=== PATIENT | female | born 1970 | race Caucasian/White ===

== ENCOUNTER 2018-06-02 09:24 | Outpatient (REF) | payer BC, SELFPAY ==
[2018-06-02 13:27] LABS: TSH (W/Ref FT4) 0.95 uIU/mL (0.358-3.74)
== END 2018-06-02 09:25 ==
LOC: NCHCN 09:24
PROVIDERS: PCP Nurse Practitioner Family; Visit Provider Nurse Practitioner Family
DX: E03.9 Hypothyroidism, unspecified (principal)
CPT/HCPCS: 84443

== ENCOUNTER 2018-07-30 12:52 | Outpatient (REF) | payer BC, SELFPAY ==
[2018-07-30 13:45] LABS: TSH 2.32 uIU/mL (0.358-3.74)
== END 2018-07-30 13:12 ==
LOC: NCHCN 12:52
PROVIDERS: PCP Nurse Practitioner Family; Visit Provider Nurse Practitioner Family
DX: E03.9 Hypothyroidism, unspecified (principal)
CPT/HCPCS: 84443

== ENCOUNTER 2019-07-07 13:42 | Outpatient (REF) | payer BC, SELFPAY ==
[2019-07-07 21:20] LABS: TSH 8.45 uIU/mL (0.36-3.74)
== END 2019-07-07 14:02 ==
LOC: NCHCN 13:42
PROVIDERS: PCP Nurse Practitioner Family; Visit Provider Nurse Practitioner Family
DX: E03.9 Hypothyroidism, unspecified (principal)
CPT/HCPCS: 84443

== ENCOUNTER 2020-04-03 16:35 | Outpatient (REF) | payer BC, SELFPAY ==
[2020-04-03 20:15] LABS: Anion Gap 7.5 mmol/L (3-11); BUN 16 mg/dL (7-18); CO2 31.5 mmol/L (21.0-32.0); CREATININE 0.89 mg/dL (0.55-1.02); Calcium 9.4 mg/dL (8.5-10.1); Chloride 101 mmol/L (98-107); Glucose 150 mg/dL (74-106); Potassium 4.8 mmol/L (3.5-5.1); Sodium 140 mmol/L (136-145); TSH (W/Ref FT4) 6.79 uIU/mL (0.36-3.74)
[2020-04-03 20:31] LABS: FREE T4 1.25 ng/dL (0.76-1.46)
== END 2020-04-03 16:55 ==
LOC: NCHCN 16:35
PROVIDERS: PCP Nurse Practitioner Family; Visit Provider Nurse Practitioner Family
DX: Z00.00 Encounter for general adult medical examination without abnormal findings (principal); E03.9 Hypothyroidism, unspecified; N76.5 Ulceration of vagina; Z68.44 Body mass index [BMI] 60.0-69.9, adult; R30.0 Dysuria
CPT/HCPCS: 80048; 87077; 84439; 84443; 87086; 87186; 87480; 87510; 87660

== ENCOUNTER 2020-04-11 13:47 | Outpatient (REF) | payer BC, SELFPAY ==
[2020-04-13 12:38] LABS: HSV 1 DNA Result Negative (Negative); HSV 2 DNA Result Negative (Negative)
== END 2020-04-11 14:07 ==
LOC: NCHCN 13:47
PROVIDERS: PCP Nurse Practitioner Family; Visit Provider Nurse Practitioner Family
DX: N76.5 Ulceration of vagina (principal)
CPT/HCPCS: 87529

== ENCOUNTER 2020-04-12 21:42 | Outpatient (REF) | payer BC, SELFPAY | END 2020-04-12 22:02 | LOC: LBN 21:42 | PROVIDERS: PCP Nurse Practitioner Family; Visit Provider Nurse Practitioner Family | DX: R30.0 Dysuria (principal) | CPT/HCPCS: 87086 ==

== ENCOUNTER 2020-07-10 16:28 | Outpatient (REF) | payer BC, SELFPAY ==
[2020-07-10 19:26] LABS: Abs Immature Grans 0.07 10^3/uL (0.0-0.06); Absolute Basophil Count 0.04 10^3/uL (0.0-0.2); Absolute Eosinophil Count 0.45 10^3/uL (0.0-0.7); Absolute Lymphocyte Count 1.26 10^3/uL (1.2-3.4); Absolute Monocyte Count 0.53 10^3/uL (0.1-0.8); Absolute Neutrophil Count 10.02 10^3/uL (1.2-6.7); Basophils % 0.3; Eosinophils % 3.6; HCT 38.1 % (36.0-46.0); HGB 11.9 g/dL (11.2-15.7); Immature Grans % 0.6; Lymphocytes % 10.2; MCH 27.3 pg (27.0-33.0); MCHC 31.2 % (32.0-36.0); MCV 87.4 fL (80-95); MPV 10.4 fL (8.0-11.0); Monocytes % 4.3; Nucleated RBC 0 %; Platelet Count 409 10^3/uL (130-400); RBC 4.36 10^6/uL (3.93-5.22); RDW-SD 44.7 fL; WBC 12.37 10^3/uL (4.4-10.8)
[2020-07-10 19:37] LABS: Anion Gap 7.8 mmol/L (3-11); BUN 10 mg/dL (7-18); CO2 32.2 mmol/L (21.0-32.0); CREATININE 0.76 mg/dL (0.55-1.02); Calcium 9.4 mg/dL (8.5-10.1); Chloride 102 mmol/L (98-107); Glucose 159 mg/dL (74-106); Potassium 4.3 mmol/L (3.5-5.1); Sodium 142 mmol/L (136-145); TSH 22.49 uIU/mL (0.36-3.74)
== END 2020-07-10 16:48 ==
LOC: NCHCN 16:28
PROVIDERS: PCP Nurse Practitioner Family; Visit Provider Nurse Practitioner Family
DX: E03.9 Hypothyroidism, unspecified (principal); N76.5 Ulceration of vagina
CPT/HCPCS: 80048; 84443; 85025

== ENCOUNTER 2020-07-31 13:05 | Outpatient (REF) | payer BC, SELFPAY ==
[2020-07-31 19:12] LABS: Anion Gap 6.5 mmol/L (3-11); BUN 14 mg/dL (7-18); CO2 32.5 mmol/L (21.0-32.0); Chloride 101 mmol/L (98-107); Glucose 147 mg/dL (74-106); Potassium 5.5 mmol/L (3.5-5.1); Sodium 140 mmol/L (136-145)
[2020-07-31 19:13] LABS: Absolute Basophil Count 0.04 10^3/uL (0.0-0.2); Absolute Eosinophil Count 0.76 10^3/uL (0.0-0.7); Absolute Monocyte Count 0.95 10^3/uL (0.1-0.8); Basophils % 0.3; Eosinophils % 5.8; HCT 40.6 % (36.0-46.0); HGB 12.5 g/dL (11.2-15.7); Immature Grans % 0.8; Lymphocytes % 8.4; MCH 26.9 pg (27.0-33.0); MCHC 30.8 % (32.0-36.0); MCV 87.5 fL (80-95); MPV 10.3 fL (8.0-11.0); Monocytes % 7.2; Neutrophils % 77.5; Nucleated RBC 0 %; Platelet Count 382 10^3/uL (130-400); RBC 4.64 10^6/uL (3.93-5.22); RDW 13.9 % (11.7-14.6); WBC 13.17 10^3/uL (4.4-10.8)
[2020-07-31 19:19] LABS: Absolute Lymphocyte Count 1.11 10^3/uL (1.2-3.4); Absolute Neutrophil Count 10.21 10^3/uL (1.2-6.7)
== END 2020-07-31 13:25 ==
LOC: NCHCN 13:05
PROVIDERS: PCP Nurse Practitioner Family; Visit Provider Nurse Practitioner Family
DX: C51.9 Malignant neoplasm of vulva, unspecified (principal); R21 Rash and other nonspecific skin eruption; R60.0 Localized edema; L03.90 Cellulitis, unspecified
CPT/HCPCS: 80048; 85025

== ENCOUNTER 2020-08-08 09:24 | Inpatient (IN) | payer BC, SELFPAY ==
[2020-08-08] VITALS (75 sets, daily range): BP systolic 102–149; BP diastolic 58–95; PULSE 83–122; RESP 17–32; TEMP 36.3–37.4; O2SAT 85–100
--- NOTE | 2020-08-08 09:15 | RT.EKG_ITS ---
APPROVED REPORT Exam: Resting ECG Patient Location: E HR:96 bpm ECG Measurements Heart Rate 96 AXIS LA 140 P 50 QRSd 83 QRS 48 QT 312 T 37 QTc 394 Conclusion Sinus rhythm...normal P axis, V-rate 60- 99 Atrial premature complex...SV complex w/ short R-R interval
--- NOTE | 2020-08-08 09:45 | DI.CT_ITS ---
EXAM: CT CHEST PE CTA CLINICAL HISTORY: CHEST PAIN pleutitic, recent vulvar ca. TECHNIQUE: Imaging Protocol: Axial CT angiography was performed with multi-slice acquisition and mu lti-planar and/or 3D reconstructions. CONTRAST MATERIAL: Intravenous: Omnipaque 350 Contrast volume:100 cc COMPARISON: CT CT THORACIC SPINE RECONS from 08/08/2020 FINDINGS: Exam is limited by patient body habitus and respiratory motion. Pulmonary Arteries: No evidence of filling defect to suggest pulmonary emboli. Tracheobronchial tree: Patent where visualized. Mediastinum and Lizzie: Enlarged bilateral hilar and mediastinal lymph nodes. Small axillary lymph nod es are also seen. Pulmonary parenchyma: Extremely limited due to respiratory motion. Multiple bilateral pulmonary nodu les are present. No gross focal area of consolidation. Posterior atelectasis. Pleura: No effusion or pneumothorax. Heart: The heart is mildly dilated. Mild coronary artery calcifications are seen. Aorta: Thoracic aorta non-dilated. Upper abdomen: Unremarkable. Bones: See separate CT thoracic spine report. IMPRESSION: Extremely limited exam due to respiratory motion. No gross evidence of pulmonary embolism. Bilater al pulmonary metastases and adenopathy is noted. RADIATION DOSE DELIVERED: 898.44mGy.cm Total DLP DATA REPOSITORY: All CT scans at this facility are submitted to the National Radiology Data Registry (NRDR) Dose Index Registry (DIR) with the [employer] (ACR). RADIATION OPTIMIZATION: All CT scans at this facility use at least one of these dose optimization te chniques: automated exposure control; mA and/or kV adjustment per patient size (includes targeted exa ms where dose is matched to clinical indication); or iterative reconstruction.
--- NOTE | 2020-08-08 09:57 | ED.GENADUL_ITS ---
Discharge Plan Disposition Condition: Stable Discharge Details Chief Complaint: GenMedical Admit Date/Time: 08/08/20 17:18 Admit Provider: Ramo Stephens Attending Provider: Ramo Stephens Primary Care Provider: Areli Peck ED Provider: Bonilla Flores Discharge Instructions Activity:: Activity as Tolerated Diet:: As Tolerated Discharge Orders Discharge Orders: Discharge Order (Routine); Ordered 08/09/20 Ordered By: Nisha Spring Discharge Data Discharge Date/Time-TO BE ENTERED AT DEPARTURE: 08/08/20 18:16 Medical Decision Making 957??50-year-old female with recently diagnosed vulvar cancer with hot spots on recent PET scan, here with fairly sudden onset mid back pain radiating to her central chest that started last night at 9 PM and has persisted. Pain is pleuritic in nature. Patient does note recent bilateral leg swelling. Patient also states she has some associated pain in her left elbow. She states that she has had pain in her neck over the past couple weeks. Patient also notes recent cellulitis being treated with doxycycline, just completed 1 week course. Patient is saturating in the low to mid 90s on room air. Blood pressure stable. Concern for acute pulmonary embolism. Plan to obtain CT of the chest. Consider ACS. Screening ECG was reviewed and interpreted by me: Sinus rhythm 96 bpm, normal axis, no STEMI, nondiagnostic. Will check troponin. We will give Ativan 1 mg IV for neck spasm and anxiety. --Initial labs reviewed and hypercalcemia noted with 12.9. Will initiate volume expansion with normal saline at 250 mL/h. Patient complaining of persistent pain. Will give fentanyl 50 mcg IV. -- CT interpreted as negative for PE. Significant tumor mets in lungs and spine. I reviewed results with Patient admitted for pain control. Care transitioned to hospitalist service. HPI General Mode of arrival: ambulatory . Date/Time Provider Initiated Documentation: 08/08/20 09:38 . Limitations to Documentation: no limitations . Information obtained by: patient . HPI Narrative: 50-year-old female with recently diagnosed vulvar cancer with hot spots on recent PET scan, here with fairly sudden onset mid back pain radiating to her central chest that started last night at 9 PM and has persisted. Pain is pleuritic in nature. Pain is severe. Patient does note recent bilateral leg swelling. Patient also states she has some associated pain in her left elbow. Related Data Home Medications Medication Instructions Recorded Confirmed levothyroxine 200 mcg tablet 200 mcg PO DAILY tab 04/12/20 08/21/20 lidocaine HCl 2 % mucosal jelly 1 applic TP QD-TID PRN #50 ml 06/05/20 08/21/20 cranberry 400 mg PO DAILY 08/08/20 08/21/20 cyclobenzaprine 10 mg PO TID PRN 08/08/20 08/21/20 ibuprofen 600 mg PO Q6H PRN 08/08/20 08/21/20 fentanyl 12 mcg TRANSDERMAL Q72H #1 ea 08/09/20 08/21/20 acetaminophen 1,000 mg PO TID 08/21/20 08/21/20 enoxaparin See Rx Instructions .ROUTE .COMPLEX 08/21/20 08/21/20 gabapentin 300 mg PO TID 08/21/20 08/21/20 hydromorphone [Dilaudid] 2 mg PO Q4-5H PRN 08/21/20 08/21/20 levothyroxine 50 mcg PO DAILY 08/21/20 08/21/20 lorazepam 0.5 mg PO QID PRN 08/21/20 08/21/20 multivitamin 1 tab PO DAILY 08/21/20 08/21/20 polyethylene glycol 3350 [Miralax] 17 g PO DAILY 08/21/20 08/21/20 senna-docusate sodium 1 tab PO BID PRN 08/21/20 08/21/20 Previous Rx's Medication Instructions Recorded lidocaine HCl 2 % mucosal jelly 1 applic TP QD-TID PRN #50 ml 06/05/20 fentanyl 12 mcg TRANSDERMAL Q72H #1 ea 08/09/20 Allergies Allergy/AdvReac Type Severity Reaction Status Date / Time erythromycin base Allergy Mild Unverified 08/21/20 22:02 General Stated Complaint: GenMedical MARY: 3 Review of Systems All systems reviewed & are unremarkable except as noted in HPI and below Cardiovascular Cardiovascular: Reports chest pain and Denies dyspnea Respiratory Respiratory: Denies dyspnea [facility] Medical History Genital labial ulcer Morbid obesity UTI (urinary tract infection) Klebsiella -treated with Bactrim 03/2020 Surgical History History of endometrial ablation Previous section Family History Other Heart disease Hyperlipidemia Hypertension Thyroid condition Social History Smoking/Tobacco Use Status: Never Smoking risk assessment performed?: Yes Alcohol Intake: current Alcohol Intake frequency: holidays/special occasions only Drug use: Never Current gender identity: female Do you feel safe at home: Yes Do you feel safe in your relationship?: Yes History History 1 Para 2 Hx # Term Pregnancies Multiple births Hx # Pregnancies 1 Ectopic pregnancies AB induced Hx Number of Living Children 2 AB spontaneous Exam Const General: cooperative and uncomfortable Orientation: alert and awake Limitations: altered mental status HENMT Head: normocephalic and atraumatic Mouth: moist mucous membranes Eyes Conjunctivae: normal conjunctivae Sclera: normal sclerae Neck Neck: trachea midline and supple Resp Auscultation: clear to auscultation bilaterally, no rales, no rhonchi and no wheezes Cardio Jugular venous pressure: no JVD Rate: tachycardic GI Palpation: soft, not firm, no guarding, no masses, not rigid and nontender Back/Spine/Pelvis Thoracic/Lumbar Spine: paraspinal tenderness and No thoracic spinal tenderness Sacrum: no erythema Skin General skin exam: no rashes or lesions noted Neuro General: patient alert, patient awake, patient oriented x3 and tone normal Extrem General: no calf tenderness bilaterally and edema Psych Appearance: grossly normal Mental Status: mental status grossly normal Speech and Movement: speech and movement normal Course Vital Signs Vital signs: Vital Signs Temperature 36.4 C L 08/08/20 09:33 Pulse 94 H 08/08/20 09:33 Respiratory Rate 20 08/08/20 09:33 Blood Pressure 145/83 H 08/08/20 09:33 Pulse Oximetry 95 08/08/20 09:33 Temperature 36.4 C L 08/08/20 09:33 Temperature Source Oral 08/08/20 09:33 Pulse 94 H 08/08/20 09:33 Respiratory Rate 20 08/08/20 09:33 Respiratory Effort 08/08/20 09:36 Blood Pressure 145/83 H 08/08/20 09:33 Blood Pressure Position Supine 08/08/20 09:33 Pulse Oximetry 95 08/08/20 09:33 Oxygen Delivery Method Room Air 08/08/20 09:33 Oxygen Flow Rate 0 08/08/20 09:33 Pain Level 10 08/08/20 09:33
[2020-08-08] MEDS: LORazepam 2 MG/ML VIAL 1 MG IVP (10:01)
[2020-08-08] MEDS: Normal Saline Flush 10 ML SYR IVP ×2 (10:01→20:03)
[2020-08-08 10:16] LABS: Absolute Basophil Count 0.03 10^3/uL (0.0-0.2); Basophils % 0.2; Eosinophils % 7.2; HCT 38.7 % (36.0-46.0); HGB 12.4 g/dL (11.2-15.7); Immature Grans % 0.8; Lymphocytes % 7.2; MCV 84.1 fL (80-95); MPV 9.7 fL (8.0-11.0); Monocytes % 8.2; Neutrophils % 76.4; Nucleated RBC 0 %; Platelet Count 328 10^3/uL (130-400); RDW 13.3 % (11.7-14.6); WBC 12.98 10^3/uL (4.4-10.8)
[2020-08-08 10:18] LABS: Absolute Eosinophil Count 0.93 10^3/uL (0.0-0.7); Absolute Lymphocyte Count 0.93 10^3/uL (1.2-3.4); Absolute Monocyte Count 1.06 10^3/uL (0.1-0.8); Absolute Neutrophil Count 9.92 10^3/uL (1.2-6.7)
[2020-08-08] MEDS: fentaNYL 100 MCG/2 ML VIAL 50 MCG IVP (10:29)
[2020-08-08 10:32] LABS: Prothrombin Time 10.3 sec (9.3-11.0)
[2020-08-08 10:33] LABS: ALT 6 U/L (14-59); AST 15 U/L (15-37); Albumin 2.7 g/dL (3.4-5.0); Alkaline Phosphatase 124 U/L (46-116); Anion Gap 3.6 mmol/L (3-11); BUN 21 mg/dL (7-18); Bilirubin, Total 0.6 mg/dL (0.2-1.0); CO2 32.4 mmol/L (21.0-32.0); CREATININE 1.15 mg/dL (0.55-1.02); Chloride 98 mmol/L (98-107); Estimated GFR 49.75 (mL/min/1.73m2); Glucose 137 mg/dL (74-106); Sodium 134 mmol/L (136-145); Total Protein 8.2 g/dL (6.4-8.2)
[2020-08-08 10:37] LABS: Calcium 12.9 mg/dL (8.5-10.1); Troponin I < 0.05 ng/mL (<0.06)
[2020-08-08] MEDS: Normal Saline 250 ML IV (10:46)
--- NOTE | 2020-08-08 11:46 | DI.CT_ITS ---
EXAM: CT THORACIC SPINE RECONS CLINICAL HISTORY: pain, vulvar ca with mets. TECHNIQUE: Imaging Protocol: Axial computed tomography images with coronal and sagittal reformatted images were created and reviewed. Exam was reconstructed from the chest CT. CONTRAST MATERIAL: Intravenous: Omnipaque 350 Contrast volume:100 cc COMPARISON: CT CT CHEST PE CTA from 08/08/2020 FINDINGS: Exam is limited by patient body habitus and motion. Bones: No fractures or dislocations are seen. There are degenerative disc changes. There is a mild scoliosis. There are questionable areas of lucency in the T12 vertebral body. The findings could re present metastatic disease. Upper thoracic vertebral bodies are not well evaluated evaluated due to artifact.. Soft tissues: The paraspinal soft tissues are unremarkable. No large disk herniations are identified. IMPRESSION: Question of lytic lesions in the T12 vertebral body which could represent metastatic disease. No fra cture. RADIATION DOSE DELIVERED: Total DLP DATA REPOSITORY: All CT scans at this facility are submitted to the National Radiology Data Registry (NRDR) Dose Index Registry (DIR) with the [employer] (ACR). RADIATION OPTIMIZATION: All CT scans at this facility use at least one of these dose optimization te chniques: automated exposure control; mA and/or kV adjustment per patient size (includes targeted exa ms where dose is matched to clinical indication); or iterative reconstruction.
[2020-08-08] MEDS: HYDROmorphone 2 MG/ML VIAL 1 MG IVP ×2 (11:54→15:28)
[2020-08-08] MEDS: Omnipaque 350 MG/ML 100 ML BTL IV (13:29)
--- NOTE | 2020-08-08 15:50 | NUR.NOTE ---
pt assisted into coco chair for comfort Nursing Note:
--- NOTE | 2020-08-08 17:51 | HPE_ITS ---
Date of service: 08/08/20 Time of Service: 17:51 Assessment and Plan Assessment and plan (1) Back pain: Status: Acute Assessment and plan: There is little doubt the back pain represents metastatic lesion, presumably pathological fracture or malignant infiltration. No signs myelopathy. In addition the hypercalcemia is cancer related. Will continue empiric pain meds (NSAIDs with opioids) and will begin aggressive hydration/diuresis for the hypercalcemia. Planned transfer [facility] [place] when bed available. History of Present Illness History of Present Illness Chief Complaint: back pain Narrative: 50 female with recently diagnosed vulvar cancer and PET scan 3 weeks [employer] demonstrating diffuse adenopathy and mutiple bony mets. Here with one day on sudden onset interscapular pain with band like radiation to chest. In ER w/u of note for negative chest CTA and suboptimal thoracic CT (note again that PET showed mets throughout spine). Also Calcium 12.9 noted. ER spoke with oncology, feels the mets may not be vulvar in origin, but in any case will need biopsy and mokre definitive treatment. provisionally accepted pending bed availability. Here has received first Fentanyl 50 and then Dilaudid 2 mg cumulatively, pain controlled. Admitted for further management. Review of Systems All systems reviewed & are unremarkable except as noted in HPI and below [facility] Medical History (Updated 08/08/20 @ 18:01 by Ramo Stephens MD) Genital labial ulcer Morbid obesity UTI (urinary tract infection) Klebsiella -treated with Bactrim 03/2020 Surgical History History of endometrial ablation Previous section Family History Other Heart disease Hyperlipidemia Hypertension Thyroid condition Social History Smoking/Tobacco Use Status: Never Alcohol Intake: current Alcohol Intake frequency: holidays/special occasions only Drug use: Never Current gender identity: female Do you feel safe at home: Yes Do you feel safe in your relationship?: Yes History History 1 Para 2 Hx # Term Pregnancies Multiple births Hx # Pregnancies 1 Ectopic pregnancies AB induced Hx Number of Living Children 2 AB spontaneous Meds Home Medications and Allergies Home Medications Medication Instructions Recorded Confirmed Type levothyroxine 200 mcg tablet 225 mcg PO DAILY tab 04/12/20 08/08/20 History lidocaine 3 % topical cream 1 applic TP DAILY PRN #85 gm 04/27/20 08/08/20 Rx lidocaine HCl 2 % mucosal jelly 1 applic TP QD-TID PRN #50 ml 06/05/20 08/08/20 Rx acetaminophen 650 mg PO ONCE PRN 08/08/20 08/08/20 History ascorbic acid (vitamin C) 500 mg PO DAILY 08/08/20 08/08/20 History cholecalciferol (vitamin D3) 25 mcg PO DAILY 08/08/20 08/08/20 History clonazepam 08/08/20 08/08/20 History cranberry 400 mg PO DAILY 08/08/20 08/08/20 History cyclobenzaprine mg 08/08/20 08/08/20 History ibuprofen 400 mg PO Q6H PRN 08/08/20 08/08/20 History Allergies Allergy/AdvReac Type Severity Reaction Status Date / Time erythromycin base Allergy Mild Unverified 08/08/20 09:37 Exam Narrative Exam Narrative: 108/72, 93, 36.4, 20, 100% RA. HEENT unremarkable; neck supple; lungs clear; heart distant RRR; abdomen soft and NT; extremities trace pedal edema, pulse 2+/=; neuro Ox3, moves all 4s, no sensory level Results Labs Result diagrams: 08/08/20 09:55 08/08/20 09:55 Labs: Laboratory Results - last 24 hr 08/08/20 08/08/20 08/08/20 09:53 09:55 09:55 WBC RBC Hgb Hct MCV MCH MCHC RDW Plt Count MPV Immature Gran % Neutrophils % Lymphocytes % Monocytes % Eosinophils % Basophils % Nucleated RBC % Absolute Neutrophils Absolute Lymphocytes Absolute Monocytes Absolute Eosinophils Absolute Basophils PT 10.3 INR 1.0 APTT 27.0 Sodium 134 L Potassium 5.0 Chloride 98 Carbon Dioxide 32.4 H Anion Gap 3.6 BUN 21 H Creatinine 1.15 H Estimated GFR/1.73 m2 49.75 Glucose 137 H Calcium 12.9 H* Magnesium Cancelled 2.0 Total Bilirubin 0.6 AST 15 ALT 6 L Alkaline Phosphatase 124 H Troponin I Cancelled < 0.05 Total Protein 8.2 Albumin 2.7 L 08/08/20 09:55 WBC 12.98 H RBC 4.60 Hgb 12.4 Hct 38.7 MCV 84.1 MCH 27.0 MCHC 32.0 RDW 13.3 Plt Count 328 MPV 9.7 Immature Gran % 0.8 Neutrophils % 76.4 Lymphocytes % 7.2 Monocytes % 8.2 Eosinophils % 7.2 Basophils % 0.2 Nucleated RBC % 0 Absolute Neutrophils 9.92 H Absolute Lymphocytes 0.93 L Absolute Monocytes 1.06 H Absolute Eosinophils 0.93 H Absolute Basophils 0.03 PT INR APTT Sodium Potassium Chloride Carbon Dioxide Anion Gap BUN Creatinine Estimated GFR/1.73 m2 Glucose Calcium Magnesium Total Bilirubin AST ALT Alkaline Phosphatase Troponin I Total Protein Albumin Last Vital Signs Temp 36.4 C L 08/08/20 17:24 Pulse 93 H 08/08/20 17:24 Resp 20 08/08/20 17:24 BP 108/72 08/08/20 17:24 Pulse Ox 100 08/08/20 17:24 COVID-19 Screening Have you,or household,traveled outside [facility] in last 14 days?: No Had IN PERSON contact w/suspected or confirmed C-19 person: No
--- NOTE | 2020-08-08 18:10 | PDOC.ERCMIN ---
- If Service Date Differs Date of service: 08/08/20 Time of Service: 18:10 Care Management Initial Assess REASON FOR HOSPITALIZATION:: Back pain, milly mets, chest pain. PAST MEDICAL HISTORY/PAST SURGICAL HISTORY:: Medical History: Genital labial ulcer, Morbid obesity, and UTI (urinary tract infection) - Klebsiella -treated with Bactrim 03/2020. Surgical History: History of endometrial ablation and Previous section. PREVIOUS FUNCTIONAL STATUS/SOCIAL/FAMILY SUPPORTS:: Delicia lives in [place] with her , Christian, and their two 14-year-old sons. 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 In her free time, she enjoys reading, cooking, and spending time with her family. Delicia is independent at baseline. CURRENT FUNCTIONAL STATUS:: Delicia is lying in a coco chair when CM comes to meet with her. She easily engages in conversation, though is visibly uncomfortable and in pain. She shares she was given pain medication and is feeling groggy. A review of her chart reveals she was recently diagnosed with vulvar cancer with hot spots on recent PET scan. CM will continue to follow. ADVANCE DIRECTIVES:: None on file. Delicia states she believes she has advance directives but is not certain. Has patient been provided with info about the portal/API?: No Did the patient sign up for the portal?: No CODE STATUS:: Full Code INSURANCE COVERAGE / FINANCIAL ISSUES:: BCBS. CURRENT HOME/COMMUNITY SERVICES/EQUIPMENT:: Delicia is independent at baseline. She doesn't currently have home/community services or medical equipment. PRIMARY CARE PHYSICIAN:: Areli Peck. POTENTIAL DISCHARGE NEEDS:: Follow up appointments with PCP and oncologist and discharge plan of care. Additional needs to be determined based on diagnosis and prognosis. PATIENT/FAMILY EDUCATION NEEDS:: Discharge instructions, limitations, and follow up plan of care, including Ask Me Three and self-management. ANTICIPATED BARRIERS TO DISCHARGE:: None. TRANSPORTATION:: Delicia is awaiting transfer to [facility]. She will be transported via EMS. PLAN:: Plan is currently to transfer Delicia to [facility] via EMS when a bed becomes available. CM will continue to follow.
[2020-08-08] MEDS: HYDROmorphone 2 MG/ML VIAL IVP (20:02)
[2020-08-08] MEDS: clonazePAM 0.5 MG TAB 0.25 MG PO (20:03)
[2020-08-08] MEDS: Normal Saline 250 ML 200 ML IV (21:04)
[2020-08-08] MEDS: Ibuprofen 800 MG TAB PO (21:41)
[2020-08-08] MEDS: Enoxaparin 40 MG/0.4 ML SYR SC (21:42)
--- NOTE | 2020-08-09 | DI.RAD_ITS ---
EXAM: XR PORTABLE CHEST AP CLINICAL HISTORY: low saturations TECHNIQUE: 2D digital imaging was performed. COMPARISON: No exams were available for comparison FINDINGS: The exam is somewhat limited by patient body habitus. The lungs are not well inflated. No infiltrat e or effusion is seen. There is no gross evidence of pulmonary edema. The previous CT showed multip le bilateral pulmonary nodules. These are not visible on this portable x-ray. IMPRESSION: No acute pulmonary findings. DATA REPOSITORY: RADIATION DOSE DELIVERED:
[2020-08-09] MEDS: Normal Saline Flush 10 ML SYR IVP ×3 (00:08→13:56)
[2020-08-09] MEDS: HYDROmorphone 2 MG/ML VIAL IVP ×2 (00:08→13:56)
--- NOTE | 2020-08-09 00:13 | NUR.NOTE ---
Attempted to place catheter in this patient at about 2100, same unsuccessful. Patient has multiple ulcers that are opened and bleeds very easily and patient state its very painful doing so. Patient was placed in modified trendelenburg position to attempt the placement of tsang catheter. Charged nurse was informed.
[2020-08-09] MEDS: Ibuprofen 800 MG TAB PO ×2 (05:16→13:56)
[2020-08-09] MEDS: clonazePAM 0.5 MG TAB 0.25 MG PO (05:16)
[2020-08-09] MEDS: Levothyroxine 75 MCG TAB 225 MCG PO (05:16)
[2020-08-09 07:00] LABS: Calcium 12.6 mg/dL (8.5-10.1)
[2020-08-09 07:26] VITALS: BP 96/70; PULSE 94; RESP 20; TEMP 36.2; O2SAT 81
[2020-08-09 08:04] VITALS: O2SAT 93
[2020-08-09] MEDS: Pantoprazole 40 MG TABCR PO (08:19)
[2020-08-09] MEDS: predniSONE 20 MG TAB 60 MG PO (08:20)
[2020-08-09 08:33] LABS: COVID-19 RT-PCR UVMMC Result Negative (Negative)
[2020-08-09 08:54] LABS: BUN 21 mg/dL (7-18); CO2 30.8 mmol/L (21.0-32.0); CREATININE 1.08 mg/dL (0.55-1.02); Chloride 98 mmol/L (98-107); Estimated GFR 53.49 (mL/min/1.73m2); Glucose 125 mg/dL (74-106); Potassium 5.2 mmol/L (3.5-5.1); Sodium 132 mmol/L (136-145)
[2020-08-09 08:55] LABS: Anion Gap 3.2 mmol/L (3-11)
[2020-08-09 08:58] LABS: Abs Immature Grans 0.12 10^3/uL (0.0-0.06); Absolute Basophil Count 0.06 10^3/uL (0.0-0.2); Absolute Eosinophil Count 1.05 10^3/uL (0.0-0.7); Absolute Neutrophil Count 10.44 10^3/uL (1.2-6.7); Basophils % 0.4; Eosinophils % 7.4; HCT 35.9 % (36.0-46.0); HGB 11.3 g/dL (11.2-15.7); Immature Grans % 0.8; Lymphocytes % 7.3; MCH 26.5 pg (27.0-33.0); MCHC 31.5 % (32.0-36.0); MCV 84.1 fL (80-95); MPV 9.8 fL (8.0-11.0); Monocytes % 10.6; Neutrophils % 73.5; Nucleated RBC 0 %; RBC 4.27 10^6/uL (3.93-5.22); RDW 13.7 % (11.7-14.6)
[2020-08-09 09:01] LABS: Absolute Lymphocyte Count 1.04 10^3/uL (1.2-3.4); Absolute Monocyte Count 1.51 10^3/uL (0.1-0.8)
[2020-08-09 09:04] LABS: Calcium 12.3 mg/dL (8.5-10.1)
--- NOTE | 2020-08-09 09:09 | W.PM.PROGNOT ---
Date of Service Date of service: 08/09/20 Time of Service: 09:10 Assessment and Plan Assessment and plan (1) Back pain: Start date: 08/09/20 Start time: 09:29 Status: Acute Assessment and plan: She did receive dilaudid overnight. She also complains of back and neck pain. CT with bony lesions Will trial steroid burst for bone pain, this is shown to improve pain Low dose fentanyl patch, with roxicodone for break through, patient would benefit from radiation, awaiting bed at [facility] Heat and ice for pain as well. Qualifiers: Back pain location: thoracic back pain Chronicity: acute Back pain laterality: bilateral Qualified Code(s): M54.6 - Pain in thoracic spine (2) Hypoxia: Start date: 08/09/20 Start time: 09:31 Status: Acute Assessment and plan: At this time requiring oxygen. Lorenley hypoventalation syndrome due to obesity. Afebrile, no cough, not SOB, LSC diminished CXR r/o infectious eitology ICS for atelectasis (3) Bone metastasis: Start date: 08/09/20 Start time: 09:33 Status: Acute Assessment and plan: From vulvar cancer as above (4) Cancer related pain: Start date: 08/09/20 Start time: 09:33 Status: Acute Assessment and plan: As above (5) Discharge planning issues: Start date: 08/09/20 Start time: 09:34 Status: Acute Assessment and plan: To [facility] when bed available. Would benefit from radiation for cancer related pain (6) DVT prophylaxis: Start date: 08/09/20 Start time: 09:34 Status: Acute Assessment and plan: Enoxaparin subcu Above case discussed with Dr. Blanchard who is in agreement. Subjective Subjective Patient reports: other Interval history since last seen: Delicia is sitting up in bed requiring oxygen at this time. She is not SOB, she does c/o neck pain. LSC,but diminished she is obese; likely hypoventalation syndrome is contributing to hypoxia, she denies cough, afebrile. Will order cxr with ICS. She becomes tearful when hearing the word cancer. She prefers not to state her illness in this word, she prefers to call it a illness or blip. She has not processed her cancer. She has ice on her neck when discussing about pain she is not sure what works better, ice or heat. We spoke about doing both intermittently and she is agreeable. Also using a fentanyl patch for pain, she is agreeable to trying this as well. Exam Narrative Exam Narrative: Const: Obese pleasant female sitting up in bed on oxygen. Does not appear SOB or in distress, AAOx3 with ice pack to back of her neck EYES: PERRLA, EOMI, mmm Neck: no lymphedema, goiter or JVD Resp: Able to speak complete sentences, NAD, LSC diminished bilaterally Cardio: RRR no ectopic beats, murmur appreciated GI: abd obese, bs x 4 Skin: intact Extrem: no clubbing, cyanosis or edema. Objective Last Vital Signs Temp 36.2 C L 08/09/20 07:26 Pulse 94 H 08/09/20 07:26 Resp 20 08/09/20 07:26 BP 96/70 L 08/09/20 07:26 Pulse Ox 93 08/09/20 08:04 Laboratory Results - last 24 hr 08/08/20 08/08/20 08/08/20 09:53 09:55 09:55 WBC RBC Hgb Hct MCV MCH MCHC RDW Plt Count MPV Immature Gran % Neutrophils % Lymphocytes % Monocytes % Eosinophils % Basophils % Nucleated RBC % Absolute Neutrophils Absolute Lymphocytes Absolute Monocytes Absolute Eosinophils Absolute Basophils PT 10.3 INR 1.0 APTT 27.0 Sodium 134 L Potassium 5.0 Chloride 98 Carbon Dioxide 32.4 H Anion Gap 3.6 BUN 21 H Creatinine 1.15 H Estimated GFR/1.73 m2 49.75 Glucose 137 H Calcium 12.9 H* Magnesium Cancelled 2.0 Total Bilirubin 0.6 AST 15 ALT 6 L Alkaline Phosphatase 124 H Troponin I Cancelled < 0.05 Total Protein 8.2 Albumin 2.7 L COVID-19 PCR Nasopharyn COVID-19 PCR Ref Test Perform Site 08/08/20 08/08/20 08/09/20 09:55 17:45 06:26 WBC 12.98 H RBC 4.60 Hgb 12.4 Hct 38.7 MCV 84.1 MCH 27.0 MCHC 32.0 RDW 13.3 Plt Count 328 MPV 9.7 Immature Gran % 0.8 Neutrophils % 76.4 Lymphocytes % 7.2 Monocytes % 8.2 Eosinophils % 7.2 Basophils % 0.2 Nucleated RBC % 0 Absolute Neutrophils 9.92 H Absolute Lymphocytes 0.93 L Absolute Monocytes 1.06 H Absolute Eosinophils 0.93 H Absolute Basophils 0.03 PT INR APTT Sodium Potassium Chloride Carbon Dioxide Anion Gap BUN Creatinine Estimated GFR/1.73 m2 Glucose Calcium 12.6 H* Magnesium Total Bilirubin AST ALT Alkaline Phosphatase Troponin I Total Protein Albumin COVID-19 PCR Negative Nasopharyn COVID-19 PCR Not Applicable Ref Test Perform Site [place] [facility] 08/09/20 08:36 WBC RBC Hgb Hct MCV MCH MCHC RDW Plt Count MPV Immature Gran % Neutrophils % Lymphocytes % Monocytes % Eosinophils % Basophils % Nucleated RBC % Absolute Neutrophils Absolute Lymphocytes Absolute Monocytes Absolute Eosinophils Absolute Basophils PT INR APTT Sodium 132 L Potassium 5.2 H Chloride 98 Carbon Dioxide 30.8 Anion Gap 3.2 BUN 21 H Creatinine 1.08 H Estimated GFR/1.73 m2 53.49 Glucose 125 H Calcium 12.3 H* Magnesium Total Bilirubin AST ALT Alkaline Phosphatase Troponin I Total Protein Albumin COVID-19 PCR Nasopharyn COVID-19 PCR Ref Test Perform Site
[2020-08-09 09:28] LABS: Diff Comment PLT Morph Reviewed; Poikilocytes 1+
[2020-08-09 09:29] LABS: Polychromasia Present
--- NOTE | 2020-08-09 10:17 | PDOC.CMPRO ---
- If Service Date Differs Date of service: 08/09/20 Time of Service: 10:17 Care Management Progress Note S/O: Delicia was sitting up in bed visiting with her Christian when CM met with her. She was very pleasant and agreeable to conversation. Delicia shared that she is waiting for a bed at [facility], hopefully later today. 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 She anticipates the need for fdc for wound and drain care and asked about the availability of private duty nurses. CM explained that a CM at [facility] will work with her to set up home health nursing when she is ready for discharge and that she would likely receive OT and possibly MANAGER PRIMARY CARE and PT as well. Delicia expressed great satisfaction with her care at [facility]. She stated that she was really impressed with the quality of care and the compassion and commitment of the staff. She stated that she feels fortunate to have such an outstanding facility so close to home. A:Delicia is a 50 year old woman admitted on 08/08/20 with bony metastasis and chest pain P:Plan is currently to transfer Delicia to [facility] via EMS when a bed becomes available. CM will continue to follow and to support Delicia and her family through this difficult time.
[2020-08-09] MEDS: Nystatin POWDER 60 GM JAR TP (10:25)
[2020-08-09] MEDS: Acetaminophen 500 MG TAB 1000 MG PO (10:51)
[2020-08-09] MEDS: oxyCODONE 10 MG TAB PO (10:51)
[2020-08-09] MEDS: fentaNYL 12 MCG PATCH TD (10:52)
[2020-08-09] MEDS: Lidocaine 2% Jelly 6 ML SYR TP (10:53)
--- NOTE | 2020-08-09 10:53 | W.PM.DS.N ---
Date of service: 08/09/20 Time of Service: 10:53 DS: Diagnosis Discharge Diagnosis (1) Back pain: Start date: 08/09/20 Start time: 10:53 Status: Acute Asessment and Plan: CT with possible lytic lesion in T12 vertebral body, which would represent metastatic disease. For this radiation would be most beneficial. She has been accepted at [facility], she will be transferred there for further management of her cancer with mets (2) Hypoxia: Start date: 08/09/20 Start time: 10:55 Status: Acute Asessment and Plan: Improved. Obesity appears to be contributing factor along with possible lung mets. Infectious etiology r/o ICS, oxygen as needed. (3) Bone metastasis: Start date: 08/09/20 Start time: 10:56 Status: Acute Asessment and Plan: as above. will also give prednisone steroid burst for bone pain and hypercalcemia (4) Cancer related pain: Start date: 08/09/20 Start time: 10:57 Status: Acute Asessment and Plan: Fentanyl patch for comfort with roxicodone prn (5) Hypercalcemia: Start date: 08/09/20 Start time: 10:57 Status: Acute Asessment and Plan: Due to cancer. Given steroid burst, fluids and low calcium diet. above case discussed with Dr. Campbell who is in agreement. Discharge Plan Disposition Patient Disposition: [facility] Condition: Stable Discharge Details Reason For Visit: BACK PAIN, TAL METS, CHEST PAIN Admit Date/Time: 08/08/20 17:18 Admit Provider: Ramo Stephens Attending Provider: Ramo Stephens Primary Care Provider: Areli Peck Home Meds and New Rx's Prescriptions: New fentanyl 12 mcg/hr Patch 72 Hour 12 mcg transdermal Q72H Qty: 1 RF: 0 oxycodone 10 mg Tablet 10 mg PO Q6H PRN PRNQty: 1 RF: 0 Continued levothyroxine [Synthroid] 200 mcg tablet 225 mcg PO DAILY RF: 0 lidocaine 3 % cream 1 applic TP DAILY PRN (Reason: pain) Qty: 85 RF: 3 lidocaine HCl 2 % jelly 1 applic TP QD-TID PRN (Reason: pain) Qty: 50 RF: 1 cyclobenzaprine 10 mg tablet RF: 0 acetaminophen 325 mg Tablet 650 mg PO ONCE PRNRF: 0 clonazepam 0.5 mg tablet RF: 0 ibuprofen 200 mg Tablet 400 mg PO Q6H PRNRF: 0 cranberry 400 mg Capsule 400 mg PO DAILY RF: 0 ascorbic acid (vitamin C) 500 mg Tablet Extended Release 500 mg PO DAILY RF: 0 cholecalciferol (vitamin D3) 25 mcg (1,000 unit) Capsule 25 mcg PO DAILY RF: 0 Discharge Instructions Additional Instructions: Transfer to [facility] Activity:: Activity as Tolerated Diet:: As Tolerated DS: Summary Status at Discharge Functional status at discharge: independent ambulation Overall status at discharge: patient is progressing back to baseline Mental Status: mental status grossly normal Speech and Movement: speech and movement normal Mood: congruent mood Affect: normal affect Exam Narrative Exam Narrative: Const: Obese pleasant female sitting up in bed on oxygen. Does not appear SOB or in distress, AAOx3 with ice pack to back of her neck EYES: PERRLA, EOMI, mmm Neck: no lymphedema, goiter or JVD Resp: Able to speak complete sentences, NAD, LSC diminished bilaterally Cardio: RRR no ectopic beats, murmur appreciated GI: abd obese, bs x 4 Skin: intact Extrem: no clubbing, cyanosis or edema. Psych Mental Status: mental status grossly normal Speech and Movement: speech and movement normal Mood: congruent mood Affect: normal affect DS: Data Vitals/I&O Vitals and I&O: Vital Signs Temperature 36.2 C L 08/09/20 07:26 Temperature Source Temporal Artery Scan 08/09/20 07:26 Pulse 94 H 08/09/20 07:26 Pulse Rhythm Regular 08/09/20 00:10 Pulse 93 H 08/08/20 17:20 Respiratory Rate 20 08/09/20 07:26 Respiratory Effort Non-Labored 08/09/20 00:10 Respiratory Depth Normal 08/09/20 00:10 Respiratory Pattern Normal 08/09/20 00:10 Blood Pressure 96/70 L 08/09/20 07:26 Blood Pressure Mean 78 08/08/20 17:15 Blood Pressure Position Supine 08/08/20 09:33 Pulse Oximetry 93 08/09/20 08:04 Oxygen Delivery Method Nasal Cannula 08/09/20 08:04 Oxygen Flow Rate 2 08/09/20 08:04 Pain Level 4 08/09/20 07:26 Comment 08/09/20 07:26 Intake & Output 08/08/20 08/08/20 08/09/20 11:59 23:59 11:59 Intake Total 500 / 500 Balance 500 / 500 Weight 183.4 kg 181.891 kg Intake: IV 500 / 500 Other: Urine Color Yellow Dark Red Urine Appearance Clear Clots Urine Odor Foul Voiding Methods Bedside Commode Data Completed and Pending Completed studies during hospitalization [Text1]: COMPARISON: CT CT THORACIC SPINE RECONS from 08/08/2020 FINDINGS: Exam is limited by patient body habitus and respiratory motion. Pulmonary Arteries: No evidence of filling defect to suggest pulmonary emboli. Tracheobronchial tree: Patent where visualized. Mediastinum and Lizzie: Enlarged bilateral hilar and mediastinal lymph nodes. Small axillary lymph nodes are also seen. Pulmonary parenchyma: Extremely limited due to respiratory motion. Multiple bilateral pulmonary nodules are present. No gross focal area of consolidation. Posterior atelectasis. Pleura: No effusion or pneumothorax. Heart: The heart is mildly dilated. Mild coronary artery calcifications are seen. Aorta: Thoracic aorta non-dilated. Upper abdomen: Unremarkable. Bones: See separate CT thoracic spine report. IMPRESSION: Extremely limited exam due to respiratory motion. No gross evidence of pulmonary embolism. Bilateral pulmonary metastases and adenopathy is noted. COMPARISON: CT CT THORACIC SPINE RECONS from 08/08/2020 EXAM: XR PORTABLE CHEST AP CLINICAL HISTORY: low saturations TECHNIQUE: 2D digital imaging was performed. COMPARISON: No exams were available for comparison FINDINGS: The exam is somewhat limited by patient body habitus. The lungs are not well inflated. No infiltrate or effusion is seen. There is no gross evidence of pulmonary edema. The previous CT showed multiple bilateral pulmonary nodules. These are not visible on this portable x-ray. IMPRESSION: No acute pulmonary findings. Labs on day of discharge: Labs from last 24 hours 08/09/20 08/09/20 08/09/20 08:36 08:36 06:26 WBC 14.20 H RBC 4.27 Hgb 11.3 Hct 35.9 L MCV 84.1 MCH 26.5 L MCHC 31.5 L RDW 13.7 Plt Count MPV 9.8 Immature Gran % 0.8 Neutrophils % 73.5 Lymphocytes % 7.3 Monocytes % 10.6 Eosinophils % 7.4 Basophils % 0.4 Nucleated RBC % 0 Absolute Neutrophils 10.44 H Absolute Lymphocytes 1.04 L Absolute Monocytes 1.51 H Absolute Eosinophils 1.05 H Absolute Basophils 0.06 RBC Morphology See below Polychromasia Present Poikilocytosis 1+ Sodium 132 L Potassium 5.2 H Chloride 98 Carbon Dioxide 30.8 Anion Gap 3.2 BUN 21 H Creatinine 1.08 H Estimated GFR/1.73 m2 53.49 Glucose 125 H Calcium 12.3 H* 12.6 H* COVID-19 PCR Nasopharyn COVID-19 PCR Ref Test Perform Site 08/08/20 17:45 WBC RBC Hgb Hct MCV MCH MCHC RDW Plt Count MPV Immature Gran % Neutrophils % Lymphocytes % Monocytes % Eosinophils % Basophils % Nucleated RBC % Absolute Neutrophils Absolute Lymphocytes Absolute Monocytes Absolute Eosinophils Absolute Basophils RBC Morphology Polychromasia Poikilocytosis Sodium Potassium Chloride Carbon Dioxide Anion Gap BUN Creatinine Estimated GFR/1.73 m2 Glucose Calcium COVID-19 PCR Negative Nasopharyn COVID-19 PCR Not Applicable Ref Test Perform Site [facility] Medical History (Updated 08/09/20 @ 10:57 by Nisha Spring NP) Genital labial ulcer Morbid obesity UTI (urinary tract infection) Klebsiella -treated with Bactrim 03/2020 Surgical History History of endometrial ablation Previous section Family History Other Heart disease Hyperlipidemia Hypertension Thyroid condition Social History Smoking/Tobacco Use Status: Never Alcohol Intake: current Alcohol Intake frequency: holidays/special occasions only Drug use: Never Current gender identity: female Do you feel safe at home: Yes Do you feel safe in your relationship?: Yes History History 1 Para 2 Hx # Term Pregnancies Multiple births Hx # Pregnancies 1 Ectopic pregnancies AB induced Hx Number of Living Children 2 AB spontaneous
[2020-08-09 12:38] VITALS: BP 122/74; PULSE 84; RESP 20; TEMP 36.6; O2SAT 97
--- NOTE | 2020-08-09 14:25 | CHAPLAIN ---
Delicia was sitting up in bed when I visited. I explained my role and offered support. She was pleasant in responding, but not interested in further conversation.
== END 2020-08-09 14:47 | disposition short-term general hospital (02) | DRG 948 ==
LOC: ER 17:56 → MS 18:33
PROVIDERS: Nurse Practitioner Family; Admitting Provider General Practice; Emergency Provider Student in an Organized Health Care Education/Training Program; PCP Nurse Practitioner Family; Visit Provider General Practice
DX: G89.3 Neoplasm related pain (acute) (chronic) (principal); C79.51 Secondary malignant neoplasm of bone; C77.8 Secondary and unspecified malignant neoplasm of lymph nodes of multiple regions; Z68.45 Body mass index [BMI] 70 or greater, adult; E66.2 Morbid (severe) obesity with alveolar hypoventilation; C51.9 Malignant neoplasm of vulva, unspecified; M54.6 Pain in thoracic spine; E83.52 Hypercalcemia
CPT/HCPCS: 36415; 71275; 80048; 80053; 93005; 96361; 96374; 96375; 96376; 99222; 99233; 99239; 99285; J1650; U0003; 71045; 82310; 83735; 84484; 85025; 85610; 85730; 93010; J2060; J3010; J3490; J7512

== ENCOUNTER 2020-08-21 22:23 | Inpatient (IN) | payer BC, SELFPAY ==
--- NOTE | 2020-08-21 22:11 | W.ED.GENAD ---
Discharge Plan Disposition Patient Disposition: [facility] Condition: Improving Discharge Details Clinical Impression: Morbid obesity, Sepsis, Acute dehydration, Chronic pain Primary Care Provider: Areli Peck ED Provider: Lincoln Gandhi Home Meds and New Rx's Prescriptions: No Action levothyroxine [Synthroid] 200 mcg tablet 200 mcg PO DAILY RF: 0 lidocaine HCl 2 % jelly 1 applic TP QD-TID PRN (Reason: pain) Qty: 50 RF: 1 polyethylene glycol 3350 [Miralax] 17 gram Powder In Packet 17 g PO DAILY RF: 0 acetaminophen 500 mg Tablet 1,000 mg PO TID RF: 0 hydromorphone [Dilaudid] 2 mg Tablet 2 mg PO Q4-5H PRN (Reason: Pain) RF: 0 lorazepam 0.5 mg Tablet 0.5 mg PO QID PRN (Reason: Anxiety) RF: 0 levothyroxine 50 mcg Tablet 50 mcg PO DAILY RF: 0 gabapentin 300 mg Capsule 300 mg PO TID RF: 0 enoxaparin 40 mg/0.4 mL Syringe See Rx Instructions .ROUTE .COMPLEX RF: 0 senna-docusate sodium Tablet 1 tab PO BID PRN (Reason: Constipation) RF: 0 multivitamin Tablet,Chewable 1 tab PO DAILY RF: 0 cyclobenzaprine 10 mg tablet 10 mg PO TID PRN (Reason: Muscle Spasticity) RF: 0 ibuprofen 200 mg Tablet 600 mg PO Q6H PRN (Reason: pain) RF: 0 cranberry 400 mg Capsule 400 mg PO DAILY RF: 0 fentanyl 12 mcg/hr Patch 72 Hour 12 mcg transdermal Q72H Qty: 1 RF: 0 Medical Decision Making This is a 50-year-old female with a past medical history of cancer with bilateral pulmonary metastases, 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 She presents today for evaluation of unremitting generalized systemic pain. Patient states that there was a tremendous amount of moving and transitioning today, she did not get her regular pain meds for an extended period of time compared to her normal standard pain medication regiment. And since she has been at health and rehab she states that she has had an incredible amount of total body all over pain. She admits to feeling hot but denies any chills. There is no particular focality to her pain. She does have a chronic indwelling Teresa catheter. She states that this time her primary goals are pain resolution. Upon EMS arrival pick the patient up they did note that she had a tympanic temperature of 100.2. No other abnormalities otherwise aside from mild tachycardia. At baseline the patient is on transdermal fentanyl, Lovenox injections, gabapentin, oral Dilaudid 2 mg. Exam demonstrates patient had notable systemic pain, with no focal focality. Vaginal region demonstrate wounds that appear clean dry and intact, with no significant discharge. Per EMS with her fever I do have concern for potential infectious etiologies. With no evidence of acute focal tenderness in the genital region, or signs of abscess drainage or other abnormality I doubt significant abscess as a cause of her potential fever. Will evaluate for urinary abnormalities, pneumonia, monitor closely and reassess. Primarily though the patient states that her primary goal is to have resolution of her pain, we will manage this with IV narcotics. Looking back at previous records it does appear that occasionally she demonstrates potential slight alteration of mental status with continued high-dose IV narcotics, however with her notable systemic pain secondary to her metastases that she is currently experiencing she feels that this is still her top priority for pain management. 1:30 AM Laboratory and imaging work-up has returned. Chest x-rays shows no evidence of acute cardiopulmonary process. No evidence of pneumonia. CT scan of the abdomen demonstrate per virtual radiology known bulky lymphadenopathy compatible with metastatic disease, as well as some scattered foci of air in postoperative surgical site in the lower pannus, there is some evidence of decreased enhancement of the left kidney may be related to pyelonephritis however this does not correlate with urinalysis. CT imaging shows no evidence of clear source of infection. Abdominal exam is inconsistent with spontaneous bacterial peritonitis. She has no nuchal rigidity or suggestion of meningitis clinically at this time. Laboratory work-up shows notably elevated white count at 22, left shift, drop in hemoglobin to 9.5, however patient has no bleeding or history of bleeding site for her surgical procedures. No active bleeding at this time certainly lactate is elevated at 2.5, electrolytes are stable. Renal function demonstrates a BUN of 13 creatinine of 0.98, calcium is low at 7.8 which we will correct. Additionally of note the patient during the first hour and 1/2 to 2 hours here the patient only made 30 cc of urine. The urine is notably dark in color, certainly concerning for volume depletion, dehydration, and potential cause of her tachycardia. However I do feel that there is still a high likelihood for infectious etiology. Especially in conjunction with her other laboratory findings. Influenza test is negative. Immediately upon laboratory work-up patient was started on broad-spectrum antibiotics out of concern for sepsis. She was given an initial liter, which brought her heart rate down from a sinus rhythm of the 130s to the 120s, blood pressures remained notably stable if not slightly elevated. Pain was notably improved with 2 mg of IV Dilaudid. Mental status remains notably normal. Procalcitonin is elevated at 0.5. With no clear source of the infectious etiology, is no evidence of acute surgical process at this time, I do feel continuing broad-spectrum antibiotic is reasonable. I did contact the hospitalist Dr. nguyen, and discussed the case with him in depth. At this time we feel that with no other identifiable acute etiology we will continue broad-spectrum antibiotics, keep the patient here then. She to continue to monitor for clinical improvement or decline, continue to gently rehydrate, and monitor. I discussed the case again with both the patient and her over the phone. All parties are in agreement with the plan. Patient will be admitted to [facility] here for further management and observation. I will place bridging orders on behalf of Dr. Miller. I have extensively reviewed the treatment plan with the patient. I have addressed all patient concerns at this time. I have also discussed the plan with the admitting physician and they agree with the current assessment and plan and have agreed to assume responsibility for the patient. All parties demonstrate verbal understanding and agreement with our assessment and plan at this time. FINDINGS: Lungs: Clear lungs. Pleural space: No pneumothorax. No sizeable effusion. Heart/Mediastinum: Cardiomediastinal silhouette is within normal limits. Bones/joints: No acute displaced fracture or dislocation. IMPRESSION: No acute cardiopulmonary process. Thank you for allowing us to participate in the care of your patient. Dictated and Authenticated by: Latrell Saavedra DO 08/21/2020 11:29 PM Eastern Time ([place] & [place]) FINDINGS: Liver: Hepatomegaly. Gallbladder and bile ducts: Cholelithiasis. No significant biliary ductal dilation. Lungs: Scattered areas of atelectasis and/or scarring. Pleural space: Small bilateral right greater than left pleural effusions. Heart: Heart is prominent however this could be related to phase of respiration. Pancreas: Unremarkable pancreas. Spleen: Splenomegaly. Adrenals: Unremarkable Kidneys and ureters: There is decreased enhancement of the left kidney compared to the right. Stomach and bowel: Bowel is nonobstructed. Intraperitoneal space: At least moderate volume nonspecific low attenuating ascites throughout the abdomen and pelvis. No free air. Lymph nodes: Bulky nodes along the left pelvic sidewall and the region of the left groin are likely metastatic. There is possible involvement left adductor muscles which a somewhat heterogeneous in appearance. Please see image 1057 series 10. Other prominent nodes including retroperitoneal, right pelvic sidewall, and right groin nodes are indeterminate but may also be metastatic in nature. Vasculature: Normal caliber aorta. Scattered mild vascular calcifications. Bladder: Unremarkable bladder. Reproductive: Unremarkable uterus for age. Unremarkable adnexa for age. Bones/joints: Healing right anterolateral 9th rib fracture. Scattered bony degenerative changes. Soft tissues: There is subcutaneous emphysema in the region of the left groin which could be related to trauma, recent access, or injections. Unremarkable superficial soft tissues otherwise. Note that exam is limited by patient body habitus. Portions of the abdomen are excluded from this study due to patient's size. IMPRESSION: 1. There is bulky lymphadenopathy along the left pelvic sidewall and in the region of the left groin compatible with metastatic disease. There is suspected involvement of the left adductor musculature. 2. There is nonspecific hepatosplenomegaly and at least moderate volume low attenuating fluid throughout the abdomen and pelvis. 3. Decreased enhancement of the left kidney compared to the right could be related to pyelonephritis. Correlate with urinalysis. 4. Cholelithiasis Thank you for allowing us to participate in the care of your patient. Dictated and Authenticated by: Latrell Saavedra DO 08/22/2020 12:32 AM Eastern Time ([place] & [place]) HPI General Date/Time Provider Initiated Documentation: 08/21/20 22:52. 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 She presents today for evaluation of unremitting generalized systemic pain. Patient states that there was a tremendous amount of moving and transitioning today, she did not get her regular pain meds for an extended period of time compared to her normal standard pain medication regiment. And since she has been at [facility] she states that she has had an incredible amount of total body all over pain. She admits to feeling hot but denies any chills. There is no particular focality to her pain. She does have a chronic indwelling Teresa catheter. She states that this time her primary goals are pain resolution. Upon EMS arrival pick the patient up they did note that she had a tympanic temperature of 100.2. No other abnormalities otherwise aside from mild tachycardia. At baseline the patient is on transdermal fentanyl, Lovenox injections, gabapentin, oral Dilaudid 2 mg. Related Data Home Medications Medication Instructions Recorded Confirmed levothyroxine 200 mcg tablet 200 mcg PO DAILY tab 04/12/20 08/21/20 lidocaine HCl 2 % mucosal jelly 1 applic TP QD-TID PRN #50 ml 06/05/20 08/21/20 cranberry 400 mg PO DAILY 08/08/20 08/21/20 cyclobenzaprine 10 mg PO TID PRN 08/08/20 08/21/20 ibuprofen 600 mg PO Q6H PRN 08/08/20 08/21/20 fentanyl 12 mcg TRANSDERMAL Q72H #1 ea 08/09/20 08/21/20 acetaminophen 1,000 mg PO TID 08/21/20 08/21/20 enoxaparin See Rx Instructions .ROUTE .COMPLEX 08/21/20 08/21/20 gabapentin 300 mg PO TID 08/21/20 08/21/20 hydromorphone [Dilaudid] 2 mg PO Q4-5H PRN 08/21/20 08/21/20 levothyroxine 50 mcg PO DAILY 08/21/20 08/21/20 lorazepam 0.5 mg PO QID PRN 08/21/20 08/21/20 multivitamin 1 tab PO DAILY 08/21/20 08/21/20 polyethylene glycol 3350 [Miralax] 17 g PO DAILY 08/21/20 08/21/20 senna-docusate sodium 1 tab PO BID PRN 08/21/20 08/21/20 Previous Rx's Medication Instructions Recorded lidocaine HCl 2 % mucosal jelly 1 applic TP QD-TID PRN #50 ml 06/05/20 fentanyl 12 mcg TRANSDERMAL Q72H #1 ea 08/09/20 Allergies Allergy/AdvReac Type Severity Reaction Status Date / Time erythromycin base Allergy Mild Unverified 08/21/20 22:02 General MARY: 3 Review of Systems All systems reviewed & are unremarkable except as noted in HPI and below PFSH Medical History Genital labial ulcer Morbid obesity UTI (urinary tract infection) Klebsiella -treated with Bactrim 03/2020 Surgical History History of endometrial ablation Previous section Family History Other Heart disease Hyperlipidemia Hypertension Thyroid condition Social History Smoking/Tobacco Use Status: Never Smoking risk assessment performed?: Yes Alcohol Intake: current Alcohol Intake frequency: holidays/special occasions only Drug use: Never Current gender identity: female Do you feel safe at home: Yes Do you feel safe in your relationship?: Yes History History 1 Para 2 Hx # Term Pregnancies Multiple births Hx # Pregnancies 1 Ectopic pregnancies AB induced Hx Number of Living Children 2 AB spontaneous Exam Narrative Exam Narrative: 1.Const: Well-nourished, morbidly obese, appearing stated age 2.Eyes: PERRL, no conjunctival injection, and symmetrical lids. 3.ENT: Atraumatic external nose and ears. Notably dry MM. Neck: Symmetric, trachea midline, No thyromegaly. 4.CVS: +S1/S2, No murmurs or gallops. Peripheral pulses 2+ and equal in all extremities. Brisk capillary refill in all extremities. 5.RESP: Unlabored respiratory effort. Clear to auscultation bilaterally. No wheezes rales or rhonchi 6.GI: Soft, Nontender/Nondistended, No hepatosplenomegaly. No guarding or rebound. Genital exam demonstrates clean dry and intact postoperative incision site in the vaginal/well-healing region. No drainage or discharge or oozing. In place Teresa catheter. No evidence of large sores or wounds. 7.MSK: Normocephalic/Atraumatic, Extremities w/o deformity or ttp No cyanosis or clubbing, limited movement of extremities secondary to chronic weakness and weight. 8.Skin: Warm, Dry. No rashes or lesions. 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 Sensation grossly intact, no focal neurologic deficits. 10.Psych: (AAO) x3. Appropriate mood and affect
--- NOTE | 2020-08-21 22:15 | DI.RAD_ITS ---
EXAM: XR PORTABLE CHEST AP CLINICAL HISTORY: fever, pain all over, known mets TECHNIQUE: 2D digital imaging was performed. COMPARISON: No exams were available for comparison FINDINGS: MEDIASTINUM: Normal. HEART: Normal. PULMONARY VASCULATURE: Normal. LUNGS: Clear. PLEURAL SPACE: No pleural effusion or pneumothorax. BONE:Within normal limits for the patient's age. OTHER FINDINGS:Normal. IMPRESSION: No acute pulmonary findings. DATA REPOSITORY: RADIATION DOSE DELIVERED:
[2020-08-21 22:22] VITALS: BP 120/79; PULSE 130; RESP 20; TEMP 37.2; O2SAT 95
[2020-08-21 22:32] VITALS: RESP 20
[2020-08-21] MEDS: HYDROmorphone 2 MG/ML VIAL IVP (22:42)
[2020-08-21] MEDS: ACETAMINOPHEN 1,000 MG/100 ML BTL 400 MG IVPB (22:43)
[2020-08-21 22:50] LABS: Abs Immature Grans 0.63 10^3/uL (0.0-0.06); Absolute Basophil Count 0.04 10^3/uL (0.0-0.2); Absolute Lymphocyte Count 0.95 10^3/uL (1.2-3.4); Basophils % 0.2; Eosinophils % 3.6; HCT 31.3 % (36.0-46.0); HGB 9.5 g/dL (11.2-15.7); Immature Grans % 2.8; Lymphocytes % 4.3; MCH 26.9 pg (27.0-33.0); MCHC 30.4 % (32.0-36.0); MCV 88.7 fL (80-95); MPV 9.8 fL (8.0-11.0); Neutrophils % 82.1; Nucleated RBC 0 %; Platelet Count 463 10^3/uL (130-400); RBC 3.53 10^6/uL (3.93-5.22); RDW-SD 47.7 fL; WBC 22.17 10^3/uL (4.4-10.8)
[2020-08-21] MEDS: Normal Saline 500 ML IV ×2 (22:50→23:54)
[2020-08-21 22:52] VITALS: BP 123/73; PULSE 121; PULSE 127; RESP 26
[2020-08-21 22:55] LABS: Lactate 2.5 mmol/L (0.6-1.4)
[2020-08-21 22:56] LABS: Absolute Monocyte Count 1.55 10^3/uL (0.1-0.8)
--- NOTE | 2020-08-21 23:00 | NUR.NOTE ---
Nursing Note: Fentanyl patch to right upper chest.
[2020-08-21 23:01] VITALS: BP 128/78; PULSE 126; PULSE 128; RESP 24
--- NOTE | 2020-08-21 23:02 | DI.CT_ITS ---
EXAM: CT ABDOMEN PELVIS W CLINICAL HISTORY: known vaginal cancer, recent infection TECHNIQUE: Imaging Protocol: Axial computed tomography images with coronal and sagittal reformatted images were created and reviewed CONTRAST MATERIAL: Intravenous: Omnipaque 350 Contrast volume:100 mL Oral: No COMPARISON: CT CT THORACIC SPINE RECONS from 08/08/[address] CHEST PE CTA from 08/08/2020 FINDINGS: ABDOMEN: Lung Bases: Bilateral basilar infiltrates. Several nodules seen in the lung bases the largest measur ing 3 mm. Hepatomegaly. Liver: Normal density. No measurable mass. Liver appears have a nodular contour suggesting underlying cirrhosis. Portal, Superior Mesenteric, and Splenic Veins: Unremarkable. Gallbladder and Biliary Tract: Cholelithiasis. The gallbladder is mildly distended. No biliary duct al dilatation. Pancreas: Normal density, no abnormal calcifications or inflammatory process. Spleen: Normal. Adrenals: No masses seen. Kidneys: Normal size, contour and axis. No radiodense stones or obstructive uropathy. No masses seen. There is diffuse decreased enhancement of the left kidney. There also appears to be mild dilatation of the left renal collecting system. Abdominal Aorta: Abdominal portion non-dilated. Atherosclerosis. Bowel: No obstruction or bowel wall thickening. No evidence of acute appendicitis. Peritoneal Cavity: There is a moderately large amount of abdominal pelvic ascites. Lymph Nodes: There are enlarged pelvic lymph nodes. The largest lymph node is on the left and measur es 2.5 x 4.7 cm. There is prominent left inguinal adenopathy. The left adductor muscles are enlarge d compared to the right. There are enlarged retroperitoneal lymph nodes present. Bones: Degenerative changes are present. There is a destructive there are destructive lesions seen i n the bones particularly in the left iliac bone. Findings are suspicious for metastatic disease. Soft Tissues: Please see above. PELVIS: Bladder: There is a question of asymmetric thickening of the wall of the left posterior aspect of the urinary bladder. A mass cannot be excluded. This may account for the delayed enhancement and dilat ation of the left renal collecting system. Reproductive Organs: Unremarkable as visualized. Lymph Nodes: Please see above. Bones: Please see above. IMPRESSION: 1. Abdominal and pelvic adenopathy including left inguinal adenopathy. Findings are suspicious for m etastatic disease. Is enlargement of the left adductor muscles which may be involved. 2. Soft tissue thickening seen at the posterior and left aspect of the urinary bladder suspicious for mass or possible metastatic involvement. 3. Moderately large amount of abdominal pelvic ascites. 4. Hepatomegaly. 5. Cholelithiasis with no biliary ductal dilatation. 6. Delayed enhancement of the left kidney with mild prominence of the left renal collecting system. An infectious or inflammatory process, obstructing stone or bladder mass should be considered. 7. Several pulmonary nodules and lytic osseous lesions. Findings are suspicious for metastatic disea se. RADIATION DOSE DELIVERED: 2,491.23mGy.cm Total DLP DATA REPOSITORY: All CT scans at this facility are submitted to the National Radiology Data Registry (NRDR) Dose Index Registry (DIR) with the [employer] (A[employer]). RADIATION OPTIMIZATION: All CT scans at this facility use at least one of these dose optimization te chniques: automated exposure control; mA and/or kV adjustment per patient size (includes targeted exa ms where dose is matched to clinical indication); or iterative reconstruction.
[2020-08-21 23:04] LABS: INR 1.1 (0.9-1.1); PTT Activated 28.5 sec (21.0-27.5)
[2020-08-21 23:09] LABS: Diff Comment Agrees w/ Instrument; Hypochromasia 1+; Polychromasia Present
[2020-08-21 23:16] VITALS: BP 146/76; PULSE 126; PULSE 128; RESP 22
[2020-08-21 23:26] LABS: Procalcitonin 0.5 ng/mL
--- NOTE | 2020-08-21 23:29 | DI.VRAD_ITS ---
PROCEDURE INFORMATION: Exam: XR Chest, 1 View Exam date and time: 08/21/2020 11:10 PM Age: 50 years old Clinical indication: Other: Fever, pain all over, known mets TECHNIQUE: Imaging protocol: XR of the chest Views: 1 view. COMPARISON: CR XR PORTABLE CHEST AP 08/09/2020 8:48 AM FINDINGS: Lungs: Clear lungs. Pleural space: No pneumothorax. No sizeable effusion. Heart/Mediastinum: Cardiomediastinal silhouette is within normal limits. Bones/joints: No acute displaced fracture or dislocation. IMPRESSION: No acute cardiopulmonary process. Dictated and Authenticated by: Latrell Saavedra MD. Ordering:JJ Stark MD
[2020-08-21 23:35] LABS: ALT 8 U/L (14-59); AST 19 U/L (15-37); Albumin 1.7 g/dL (3.4-5.0); Alkaline Phosphatase 116 U/L (46-116); Anion Gap 7.2 mmol/L (3-11); BUN 13 mg/dL (7-18); Bilirubin, Total 0.3 mg/dL (0.2-1.0); CO2 30.8 mmol/L (21.0-32.0); CREATININE 0.98 mg/dL (0.55-1.02); Calcium 7.8 mg/dL (8.5-10.1); Chloride 94 mmol/L (98-107); Estimated GFR 59.83 (mL/min/1.73m2); Glucose 151 mg/dL (74-106); Potassium 4.4 mmol/L (3.5-5.1); Sodium 132 mmol/L (136-145); Total Protein 6.5 g/dL (6.4-8.2)
[2020-08-21] MEDS: Omnipaque 350 MG/ML 100 ML BTL IV (23:51)
[2020-08-21] MEDS: Normal Saline - Diluent 50 ML VIAL IV (23:52)
[2020-08-21 23:59] LABS: Bilirubin Moderate (Negative); Blood Large (Negative); Clarity Sl Cloudy (Clear); Glucose Negative (Negative); Ketones Trace mg/dL (Negative); Leukocyte Esterase Negative (Negative); Nitrite Negative (Negative); Specific Gravity 1.025 (1.005-1.025)
[2020-08-22] VITALS (13 sets, daily range): BP systolic 104–144; BP diastolic 56–84; PULSE 102–128; RESP 18–25; TEMP 36.4–36.8; O2SAT 92–97
[2020-08-22] MEDS: PIPERACILLIN/TAZO 4.5 GM in Normal Saline 100 ML IVPB (00:10)
[2020-08-22 00:18] LABS: C & S Indicated? C&S Done As Ordered; RBC >50 HPF (0-2)
--- NOTE | 2020-08-22 00:32 | DI.VRAD_ITS ---
PROCEDURE INFORMATION: Exam: CT Abdomen And Pelvis With Contrast; Liver Exam date and time: 08/21/2020 11:21 PM Age: 50 years old Clinical indication: Mass, lump, or swelling and other: Known vaginal cancer, recent infection; Additional info: Fever, pain all over, known mets, known vaginal cancer, recent infection TECHNIQUE: Imaging protocol: Computed tomography of the abdomen and pelvis with intravenous contrast. Exam focused on the liver. Radiation optimization: All CT scans at this facility use at least one of these dose optimization techniques: automated exposure control; mA and/or kV adjustment per patient size (includes targeted exams where dose is matched to clinical indication); or iterative reconstruction. Contrast material: OMNIPAQUE 350; Contrast volume: 100 ml; Contrast route: INTRAVENOUS (IV); COMPARISON: No relevant images were readily available for comparison purposes. FINDINGS: Liver: Hepatomegaly. Gallbladder and bile ducts: Cholelithiasis. No significant biliary ductal dilation. Lungs: Scattered areas of atelectasis and/or scarring. Pleural space: Small bilateral right greater than left pleural effusions. Heart: Heart is prominent however this could be related to phase of respiration. Pancreas: Unremarkable pancreas. Spleen: Splenomegaly. Adrenals: Unremarkable Kidneys and ureters: There is decreased enhancement of the left kidney compared to the right. Stomach and bowel: Bowel is nonobstructed. Intraperitoneal space: At least moderate volume nonspecific low attenuating ascites throughout the abdomen and pelvis. No free air. Lymph nodes: Bulky nodes along the left pelvic sidewall and the region of the left groin are likely metastatic. There is possible involvement left adductor muscles which a somewhat heterogeneous in appearance. Please see image 1057 series 10. Other prominent nodes including retroperitoneal, right pelvic sidewall, and right groin nodes are indeterminate but may also be metastatic in nature. Vasculature: Normal caliber aorta. Scattered mild vascular calcifications. Bladder: Unremarkable bladder. Reproductive: Unremarkable uterus for age. Unremarkable adnexa for age. Bones/joints: Healing right anterolateral 9th rib fracture. Scattered bony degenerative changes. Soft tissues: There is subcutaneous emphysema in the region of the left groin which could be related to trauma, recent access, or injections. Unremarkable superficial soft tissues otherwise. Note that exam is limited by patient body habitus. Portions of the abdomen are excluded from this study due to patient's size. IMPRESSION: 1. There is bulky lymphadenopathy along the left pelvic sidewall and in the region of the left groin compatible with metastatic disease. There is suspected involvement of the left adductor musculature. 2. There is nonspecific hepatosplenomegaly and at least moderate volume low attenuating fluid throughout the abdomen and pelvis. 3. Decreased enhancement of the left kidney compared to the right could be related to pyelonephritis. Correlate with urinalysis. 4. Cholelithiasis Dictated and Authenticated by: Latrell Saavedra MD. Ordering:JJ Stark MD
[2020-08-22] MEDS: DOXYCYCLINE 100 MG in Normal Saline 100 ML IVPB (00:43)
[2020-08-22] MEDS: Normal Saline 1,000 ML 1000 ML IV (00:48)
[2020-08-22 00:55] LABS: Creatine Kinase 46 U/L (26-192)
[2020-08-22] MEDS: VANCOMYCIN 2,000 MG in Normal Saline 500 ML 250 MG IVPB (01:48)
[2020-08-22] MEDS: MORPHine 2 MG/ML SYR 4 MG IVP (03:23)
[2020-08-22] MEDS: Normal Saline Flush 10 ML SYR IVP ×2 (03:23→05:04)
[2020-08-22] MEDS: LORazepam 2 MG/ML VIAL 0.5 MG IVP (05:03)
--- NOTE | 2020-08-22 05:48 | HPE_ITS ---
Date of service: 08/22/20 Time of Service: 05:48 Assessment and Plan Assessment and plan (1) Chronic pain: Status: Chronic Assessment and plan: Related to her morbid obesity and resultant dysmobility. Complicated by metestatic cancer to bone. Cont Fentanyl patch and prn dilaudid. Titrate as necessary. Qualifiers: Chronic pain type: chronic pain syndrome Qualified Code(s): G89.4 - Chronic pain syndrome (2) Cancer related pain: Status: Acute Assessment and plan: Cont to treat as per noted under chronic pain. (3) Primary vulvar squamous cell carcinoma: Status: Acute Assessment and plan: S/P resection of vulvar lesion. Discharged from [facility] with tsang catheter. Very little output noted despite IV fluids, normal BUN, creatinine indicating no overly significant dehydration. Tsang was irrigated and there was no return. Tsang balloon deflated and it did come out. Dark thick clot at tsang tip. Patient then urinated in the bed. Sheets showed yellow urine. No clots noted but d/t her large size and her inability to turn/roll, clots could have been present and just not accounted for. Consult Urology. Hold her lovenox 40mg SC BID until further evaluation for any active bleeding is completed. (4) Morbid obesity: Status: Acute Assessment and plan: She is unable to assist in rolling/turning. Concerned that she will not tolerate a flaco lift but this may have to be attempted in order to maintain hygiene. Ideally needs a bariatric bed to allow a safer exam of her genitalia and reinsertion of tsang catheter. Must consider discussing her situation with [facility] for possible transfer. (5) Hypocalcemia: Status: Acute Assessment and plan: Noted to be hypercalcemic at time of previous hospitalization. Ca gluconate given in the ED Follow. (6) Temperature elevated: Status: Acute Assessment and plan: This triggered a PUI status. Elevation could be d/t infection vs her body habitus along with pain/anxiety. Now on emperic antibiotic coverage. Monitor CBC, procal. History of Present Illness History of Present Illness Chief Complaint: unremitting pain Narrative: This is a 50 yo morbidly obese female with a h/o squamous cell cancer of the vulva / s/p vulvar resection on 08/16/2020 at [facility], metasteses to lung, bone, retroperitoneal lymph nodes, hypothyroidism. She was discharged from [facility] on 08/21/2020 and [facility] She presented to the ED for evaluation of unremitting generalized pain. Because of the length of time w/o her standard narcotic and NSAID pain management (d/t the transfer from [facility]) her pain had escalated. EMS noted she had a temperature elevation of 100.2 and mild tachycardia. The exam of her vulvar resection site was very difficult per ED physician d/t her large body habitus. An indwelling tsang catheter was in place but no urine in the tubing or bag. Her incision was examined and noted to be intact, no drainage or focal tenderness. ED work-up: CXR w/o acute findings. CT abd/pelvis showed the known lymphadenopathy, scattered foci of air in the postoperative surgical site in the lower pannus, decreased enhancement of the left kidney, at least moderate low attenuating ascites throughout the abd and pelvis. Bladder was unremarkable. WBC count was elevated at 22 with a left shift. Hgb 9.5. Lactate elevated at 2.5. BUN 13, creatinine 0.98. Calcium low at 7.8. During her initial w/u period only 30 cc of very dark urine was noted in the tsang bag. UA showed WBCs, no leukocyte esterase or nitrites. Other micro undedetermined d/t the large amount of RBCs obscuring the ability to visualize. Procalcitonin 0.5. Influenza neg. Covid-19 test pending. After a liter of NS her heart improved from the 130's to 120's. BP remained stable. Though no clear source of an infection noted, possibly urine, possibly a developing abscess, Zosyn, Vancomycin and doxycycline were administered. She was admitted to [facility] on 08/08/2020 and discharged the following day to [facility] for further management of her vulvar cancer; particularly for eval/tx of her apparent milly metastatic disease pain. Review of Systems All systems reviewed & are unremarkable except as noted in HPI and below (obtained from ED physician) and Unobtainable due to mental status (Hospitalist exam; pt lethargic/sedated) [facility] Medical History Genital labial ulcer Morbid obesity UTI (urinary tract infection) Klebsiella -treated with Bactrim 03/2020 Surgical History History of endometrial ablation Previous section Family History Other Heart disease Hyperlipidemia Hypertension Thyroid condition Social History Smoking/Tobacco Use Status: Never Smoking risk assessment performed?: Yes Alcohol Intake: current Alcohol Intake frequency: holidays/special occasions only Drug use: Never Current gender identity: female Do you feel safe at home: Yes Do you feel safe in your relationship?: Yes History History 1 Para 2 Hx # Term Pregnancies Multiple births Hx # Pregnancies 1 Ectopic pregnancies AB induced Hx Number of Living Children 2 AB spontaneous Meds Home Medications and Allergies Home Medications Medication Instructions Recorded Confirmed Type levothyroxine 200 mcg tablet 200 mcg PO DAILY tab 04/12/20 08/21/20 History lidocaine HCl 2 % mucosal jelly 1 applic TP QD-TID PRN #50 ml 06/05/20 08/21/20 Rx cranberry 400 mg PO DAILY 08/08/20 08/21/20 History cyclobenzaprine 10 mg PO TID PRN 08/08/20 08/21/20 History ibuprofen 600 mg PO Q6H PRN 08/08/20 08/21/20 History fentanyl 12 mcg TRANSDERMAL Q72H #1 ea 08/09/20 08/21/20 Rx acetaminophen 1,000 mg PO TID 08/21/20 08/21/20 History enoxaparin See Rx Instructions .ROUTE .COMPLEX 08/21/20 08/21/20 History gabapentin 300 mg PO TID 08/21/20 08/21/20 History hydromorphone [Dilaudid] 2 mg PO Q4-5H PRN 08/21/20 08/21/20 History levothyroxine 50 mcg PO DAILY 08/21/20 08/21/20 History lorazepam 0.5 mg PO QID PRN 08/21/20 08/21/20 History multivitamin 1 tab PO DAILY 08/21/20 08/21/20 History polyethylene glycol 3350 [Miralax] 17 g PO DAILY 08/21/20 08/21/20 History senna-docusate sodium 1 tab PO BID PRN 08/21/20 08/21/20 History Allergies Allergy/AdvReac Type Severity Reaction Status Date / Time erythromycin base Allergy Mild Unverified 08/21/20 22:02 Exam Const General: no acute distress and lethargic Nutritional Appearance: obese morbidly obese Orientation: other (Lethargic; opens eyes, doesn't verbalize) Limitations: altered mental status (d/t sedating meds) Eyes Sclera: sclerae normal Pupils: PERRL Resp Effort & Inspection: normal respiratory effort Auscultation: clear to auscultation bilaterally and diminished lung sounds Cardio Rate: tachycardic Rhythm: regular rhythm Heart Sounds: S1 normal and S2 normal GI Inspection: large pannus and obesity Palpation: firm, no guarding and not rigid Auscultation: normal bowel sounds General: other (Unable to assess d/t morbid obesity.) Extrem General: no joint enlargement and no pedal edema Results Labs Result diagrams: 08/21/20 22:35 08/21/20 22:35 Labs: Laboratory Results - last 24 hr 08/21/20 08/21/20 08/21/20 00:00 22:32 22:35 WBC RBC Hgb Hct MCV MCH MCHC RDW Plt Count MPV Immature Gran % Neutrophils % Lymphocytes % Monocytes % Eosinophils % Basophils % Nucleated RBC % Absolute Neutrophils Absolute Lymphocytes Absolute Monocytes Absolute Eosinophils Absolute Basophils RBC Morphology Polychromasia Hypochromasia PT INR APTT VBG Lactate Sodium 132 L Potassium 4.4 Chloride 94 L Carbon Dioxide 30.8 Anion Gap 7.2 BUN 13 Creatinine 0.98 Estimated GFR/1.73 m2 59.83 Glucose 151 H Calcium 7.8 L Total Bilirubin 0.3 AST 19 ALT 8 L Alkaline Phosphatase 116 Creatine Kinase Total Protein 6.5 Albumin 1.7 L Procalcitonin Urine Color Brown Urine Clarity Sl cloudy Urine pH 6.0 Ur Specific Gervais 1.025 Urine Protein >=300 H Urine Ketones Trace H Urine Blood Large H Urine Nitrite Negative Urine Bilirubin Moderate H Urine Urobilinogen 1.0 H Ur Leukocyte Esterase Negative Urine RBC >50 H Urine WBC Ur Epithelial Cells Not Applicable Urine Crystals Not Applicable Urine Bacteria Not Applicable Urine Mucus Not Applicable Ur Culture Indicated? C&s done as ordered Urine Glucose Negative COVID-19 PCR Cancelled Nasopharyn COVID-19 PCR Cancelled Ref Test Perform Site Cancelled 08/21/20 08/21/20 08/21/20 22:35 22:35 22:35 WBC 22.17 H RBC 3.53 L Hgb 9.5 L Hct 31.3 L MCV 88.7 MCH 26.9 L MCHC 30.4 L RDW 15.0 H Plt Count 463 H MPV 9.8 Immature Gran % 2.8 Neutrophils % 82.1 Lymphocytes % 4.3 Monocytes % 7.0 Eosinophils % 3.6 Basophils % 0.2 Nucleated RBC % 0 Absolute Neutrophils 18.20 H Absolute Lymphocytes 0.95 L Absolute Monocytes 1.55 H Absolute Eosinophils 0.80 H Absolute Basophils 0.04 RBC Morphology See below Polychromasia Present Hypochromasia 1+ PT 11.0 INR 1.1 APTT 28.5 H VBG Lactate 2.5 H* Sodium Potassium Chloride Carbon Dioxide Anion Gap BUN Creatinine Estimated GFR/1.73 m2 Glucose Calcium Total Bilirubin AST ALT Alkaline Phosphatase Creatine Kinase Total Protein Albumin Procalcitonin Urine Color Urine Clarity Urine pH Ur Specific Gervais Urine Protein Urine Ketones Urine Blood Urine Nitrite Urine Bilirubin Urine Urobilinogen Ur Leukocyte Esterase Urine RBC Urine WBC Ur Epithelial Cells Urine Crystals Urine Bacteria Urine Mucus Ur Culture Indicated? Urine Glucose COVID-19 PCR Nasopharyn COVID-19 PCR Ref Test Perform Site 08/21/20 08/22/20 22:35 00:15 WBC RBC Hgb Hct MCV MCH MCHC RDW Plt Count MPV Immature Gran % Neutrophils % Lymphocytes % Monocytes % Eosinophils % Basophils % Nucleated RBC % Absolute Neutrophils Absolute Lymphocytes Absolute Monocytes Absolute Eosinophils Absolute Basophils RBC Morphology Polychromasia Hypochromasia PT INR APTT VBG Lactate Sodium Potassium Chloride Carbon Dioxide Anion Gap BUN Creatinine Estimated GFR/1.73 m2 Glucose Calcium Total Bilirubin AST ALT Alkaline Phosphatase Creatine Kinase 46 Total Protein Albumin Procalcitonin 0.5 Urine Color Urine Clarity Urine pH Ur Specific Gervais Urine Protein Urine Ketones Urine Blood Urine Nitrite Urine Bilirubin Urine Urobilinogen Ur Leukocyte Esterase Urine RBC Urine WBC Ur Epithelial Cells Urine Crystals Urine Bacteria Urine Mucus Ur Culture Indicated? Urine Glucose COVID-19 PCR Nasopharyn COVID-19 PCR Ref Test Perform Site Last Vital Signs Temp 36.5 C 08/22/20 03:25 Pulse 120 H 08/22/20 03:25 Resp 19 08/22/20 03:25 BP 110/72 08/22/20 03:25 Pulse Ox 92 08/22/20 03:25 COVID-19 Screening Have you,or household,traveled outside [place] in last 14 days?: Yes Had IN PERSON contact w/suspected or confirmed C-19 person: No
[2020-08-22] MEDS: Normal Saline 1,000 ML 150 ML IV (07:45)
[2020-08-22] MEDS: Levothyroxine 50 MCG TAB PO (07:50)
[2020-08-22] MEDS: PIPERACILLIN/TAZO 3.375 GM in Normal Saline 50 ML IVPB (07:50)
[2020-08-22] MEDS: Levothyroxine 200 MCG TAB PO (07:50)
[2020-08-22] MEDS: Acetaminophen 325 MG TAB 650 MG PO (08:10)
[2020-08-22] MEDS: HYDROmorphone 2 MG TAB PO (08:10)
[2020-08-22] MEDS: Multivitamin TAB 1 TAB PO (08:11)
[2020-08-22] MEDS: Gabapentin 300 MG CAP PO (08:11)
[2020-08-22] MEDS: Polyethylene Glycol 3350 17 GM PACKET PO (08:13)
[2020-08-22 09:31] LABS: ALT 8 U/L (14-59); AST 17 U/L (15-37); Albumin 1.6 g/dL (3.4-5.0); Alkaline Phosphatase 114 U/L (46-116); Anion Gap 6.5 mmol/L (3-11); BUN 13 mg/dL (7-18); Bilirubin, Total 0.3 mg/dL (0.2-1.0); CO2 30.5 mmol/L (21.0-32.0); CREATININE 1.06 mg/dL (0.55-1.02); Calcium 7.4 mg/dL (8.5-10.1); Chloride 99 mmol/L (98-107); Estimated GFR 54.65 (mL/min/1.73m2); Glucose 144 mg/dL (74-106); Potassium 4.9 mmol/L (3.5-5.1); Sodium 136 mmol/L (136-145); Total Protein 6.3 g/dL (6.4-8.2)
[2020-08-22 09:52] LABS: TSH (W/Ref FT4) 16.55 uIU/mL (0.36-3.74)
[2020-08-22] MEDS: Lidocaine 2% Jelly 11 ML SYR (10:00)
--- NOTE | 2020-08-22 10:01 | INITIAL_ITS ---
- If Service Date Differs Date of service: 08/22/20 Time of Service: 10:01 Care Management Initial Assess REASON FOR HOSPITALIZATION:: Dehydration and sepsis PAST MEDICAL HISTORY/PAST SURGICAL HISTORY:: Medical History . Genital labial ulcer. Morbid obesity. UTI (urinary tract infection). Klebsiella -treated with Bactrim 03/2020. Surgical History . History of endometrial ablation. Previous section PREVIOUS FUNCTIONAL STATUS/SOCIAL/FAMILY SUPPORTS:: Delicia lives in [place], [place] with her Christian. They have twin 14 year old boys. Prior to the diagnosis of metastatic cancer, Delicia was independent with all care and activities. At this time she has limited mobility and requires assistance with ADLs and repositioning. CURRENT FUNCTIONAL STATUS:: Delicia was sleeping when CM came to see her. She is being emergently transferred to [facility]. ADVANCE DIRECTIVES:: None on file Has patient been provided with info about the portal/API?: No Did the patient sign up for the portal?: No CODE STATUS:: Full Code INSURANCE COVERAGE / FINANCIAL ISSUES:: BC/BS CURRENT HOME/COMMUNITY SERVICES/EQUIPMENT:: none currently. Delicia was transferred to [facility] from [facility] a short time after arriving to the facility from [facility] PRIMARY CARE PHYSICIAN:: Areli Peck PATIENT/FAMILY EDUCATION NEEDS:: Discharge plan, limitations, follow up plan, Ask Me Three TRANSPORTATION:: via ambulance coordinated by nursing supervisor pyrotechnic loading PLAN:: Delicia is being emergently transferred to [facility] via ambulance coordinated by nursing superrvisor. She will follow up with the providers and ploanc at [facility].
[2020-08-22 10:12] LABS: FREE T4 0.99 ng/dL (0.76-1.46)
--- NOTE | 2020-08-22 10:27 | DSE_ITS ---
Date of service: 08/22/20 Time of Service: 10:27 DS: Diagnosis Discharge Diagnosis (1) Sepsis: Status: Acute (2) Obstruction of Tsang catheter: Status: Acute (3) Hematuria: Status: Acute (4) Dehydration: Status: Acute (5) Cancer related pain: Status: Acute (6) Primary vulvar squamous cell carcinoma: Status: Acute (7) Morbid obesity: Status: Acute (8) Hypocalcemia: Status: Acute Discharge Plan Disposition Patient Disposition: [facility] Condition: Serious Discharge Details Reason For Visit: DEHYDRATION, SEPSIS Admit Date/Time: 08/22/20 01:12 Admit Provider: Phoenix Campbell Attending Provider: Phoenix Campbell Primary Care Provider: Areli Peck [facility] Hospital Course: Ms Burgos is a 50 year old female with PMHx of metastatic vulvar cancer, s/p resection at [facility] on 08/16/2020, as well as h/o chronic pain, and morbid obesity with BMI of 77, who was discharged from [facility] to [facility] on 07/21/2020, who was brought to [facility] ED shortly after her arrival to [facility] for uncontrolled pain. EMS noted a temperature of 100.2. On arrival to [facility] ED, she was found to have subcutaneous emphysema in the lower pannus: post- instrumentation +/-suspected infection, especially considering a white count of 22. Additionally, imaging suggests infectious process in the left renal collecting system, including possibility of an obstructing stone or bladder mass. She was initiated on vancomycin and zosyn. The patient had a tsang catheter in place, which was not draining. Despite flushing the catheter as well as IVF, no urinary output was noted. The patient's tsang catheter was found to be obstructed by a blood clot and had to be removed. Unfortunately, re-insertion of this has proven impossible at our facility - by both nursing and [employer], who saw the patient in consult (urethral opening could not be identified). We do not have urology in house today. At this point, due to suspected post-operative infection, as well as hematuria, difficulty with re-insertion of the tsang catheter which is felt to be necessary due to healing of post-operative wounds, the patient is felt to require a transfer back to [facility], where more therapeutic options would be available for the patient (including urology). The patient is accepted in transfer by Dr Cowan of [employer] [facility] and is medically stable for transfer. We appreciate the assistance of [facility] [facility] team in taking care of this patient. Care for patient as well as completion of this transfer summary took 1 hour on day of transfer. Home Meds and New Rx's Prescriptions: No Action levothyroxine [Synthroid] 200 mcg tablet 200 mcg PO DAILY RF: 0 lidocaine HCl 2 % jelly 1 applic TP QD-TID PRN (Reason: pain) Qty: 50 RF: 1 polyethylene glycol 3350 [Miralax] 17 gram Powder In Packet 17 g PO DAILY RF: 0 acetaminophen 500 mg Tablet 1,000 mg PO TID RF: 0 hydromorphone [Dilaudid] 2 mg Tablet 2 mg PO Q4-5H PRN (Reason: Pain) RF: 0 lorazepam 0.5 mg Tablet 0.5 mg PO QID PRN (Reason: Anxiety) RF: 0 levothyroxine 50 mcg Tablet 50 mcg PO DAILY RF: 0 gabapentin 300 mg Capsule 300 mg PO TID RF: 0 enoxaparin 40 mg/0.4 mL Syringe See Rx Instructions .ROUTE .COMPLEX RF: 0 senna-docusate sodium Tablet 1 tab PO BID PRN (Reason: Constipation) RF: 0 multivitamin Tablet,Chewable 1 tab PO DAILY RF: 0 cyclobenzaprine 10 mg tablet 10 mg PO TID PRN (Reason: Muscle Spasticity) RF: 0 ibuprofen 200 mg Tablet 600 mg PO Q6H PRN (Reason: pain) RF: 0 cranberry 400 mg Capsule 400 mg PO DAILY RF: 0 fentanyl 12 mcg/hr Patch 72 Hour 12 mcg transdermal Q72H Qty: 1 RF: 0 Discharge Instructions Activity:: bedrest, turn Q2hrs Diet:: As Tolerated Discharge Orders Discharge Orders: Discharge Order (Routine); Ordered 08/22/20 Ordered By: Cleo Rutherford DS: Summary Status at Discharge Functional status at discharge: bed bound Overall status at discharge: patient is not back to baseline Mental Status: mental status grossly normal Speech and Movement: speech and movement normal Mood: congruent mood Affect: normal affect Exam Narrative Exam Narrative: General: Tearful obese female, wearing oxygen (3L), does not appear dyspneic/tachypneic HEENT: EOMI, dry MM Heart: RRR, no m/r/g Lungs: Diminished breath sounds B Abdomen: soft, tender in lower abdomen, obese Extremities: 2+ BLE edema, symmetric Psych Mental Status: mental status grossly normal Speech and Movement: speech and movement normal Mood: congruent mood Affect: normal affect DS: Data Vitals/I&O Vitals and I&O: Vital Signs Temperature 36.4 C L 08/22/20 08:15 Temperature Source Tympanic 08/22/20 08:15 Pulse 120 H 08/22/20 08:15 Pulse Rhythm Regular 08/22/20 02:41 Pulse 122 H 08/22/20 01:46 Respiratory Rate 22 08/22/20 08:15 Respiratory Effort 08/22/20 02:41 Respiratory Depth Normal 08/22/20 02:41 Respiratory Pattern Normal 08/22/20 02:41 Blood Pressure 128/84 08/22/20 08:15 Blood Pressure Mean 73 08/22/20 01:46 Pulse Oximetry 94 08/22/20 08:15 Oxygen Delivery Method Nasal Cannula 08/22/20 08:15 Oxygen Flow Rate 3 08/22/20 08:15 Pain Level 8 08/22/20 08:15 Intake & Output 08/21/20 08/21/20 08/22/20 11:59 23:59 11:59 Intake Total 100 / 600 2510 / 2510 Output Total 230 / 230 Balance 100 / 570 2280 / 2280 Weight 196.1 kg 191 kg Intake: IV 100 / 600 2260 / 2260 Oral 250 / 250 Output: Urine 230 / 230 Other: Urine Color Dark Kristel Brown Urine Appearance Clear Comment Pt complaints of tsang induced discomfort. Foleys placement checked. irrigated with NS 40ml. No return flow noted . Tsang tubing is dry. pt bear down and copious amount of urine came out through the urethra not through the tsang. Tsang pulled out, noted a big clot clogged the cateter. catheter discontinued. Informed charge nurse. aware. Depends placed with 4 max assist and bedlinen changed. Data Completed and Pending Completed studies during hospitalization [Text1]: CT abdomen/pelvis: 1. Abdominal and pelvic adenopathy including left inguinal adenopathy. Findings are suspicious for metastatic disease. Is enlargement of the left adductor muscles which may be involved. 2. Soft tissue thickening seen at the posterior and left aspect of the urinary bladder suspicious for mass or possible metastatic involvement. 3. Moderately large amount of abdominal pelvic ascites. 4. Hepatomegaly. 5. Cholelithiasis with no biliary ductal dilatation. 6. Delayed enhancement of the left kidney with mild prominence of the left renal collecting system. An infectious or inflammatory process, obstructing stone or bladder mass should be considered. 7. Several pulmonary nodules and lytic osseous lesions. Findings are suspicious for metastatic disease. Labs on day of discharge: Labs from last 24 hours 08/22/20 08/22/20 08/22/20 12:00 12:00 12:00 WBC Pending RBC Pending Hgb Pending Hct Pending MCV Pending MCH Pending MCHC Pending RDW Pending Plt Count Pending MPV Pending Immature Gran % Pending Neutrophils % Pending Lymphocytes % Pending Monocytes % Pending Eosinophils % Pending Basophils % Pending Nucleated RBC % Absolute Neutrophils Pending Absolute Lymphocytes Pending Absolute Monocytes Pending Absolute Eosinophils Pending Absolute Basophils Pending RBC Morphology Polychromasia Hypochromasia PT INR APTT VBG Lactate Pending Sodium Pending Potassium Pending Chloride Pending Carbon Dioxide Pending Anion Gap Pending BUN Pending Creatinine Pending Estimated GFR/1.73 m2 Pending Glucose Pending Calcium Pending Total Bilirubin Pending AST Pending ALT Pending Alkaline Phosphatase Pending Creatine Kinase Total Protein Pending Albumin Pending Procalcitonin TSH Free T4 Urine Color Urine Clarity Urine pH Ur Specific [place] Urine Protein Urine Ketones Urine Blood Urine Nitrite Urine Bilirubin Urine Urobilinogen Ur Leukocyte Esterase Urine RBC Urine WBC Ur Epithelial Cells Urine Crystals Urine Bacteria Urine Mucus Ur Culture Indicated? Urine Glucose COVID-19 PCR Nasopharyn COVID-19 PCR SARS-CoV-2 Source SARS-CoV-2 (PCR) Ref Test Perform Site 08/22/20 08/22/20 08/22/20 08:10 08:10 00:15 WBC RBC Hgb Hct MCV MCH MCHC RDW Plt Count MPV Immature Gran % Neutrophils % Lymphocytes % Monocytes % Eosinophils % Basophils % Nucleated RBC % Absolute Neutrophils Absolute Lymphocytes Absolute Monocytes Absolute Eosinophils Absolute Basophils RBC Morphology Polychromasia Hypochromasia PT INR APTT VBG Lactate Sodium 136 Potassium 4.9 Chloride 99 Carbon Dioxide 30.5 Anion Gap 6.5 BUN 13 Creatinine 1.06 H Estimated GFR/1.73 m2 54.65 Glucose 144 H Calcium 7.4 L Total Bilirubin 0.3 AST 17 ALT 8 L Alkaline Phosphatase 114 Creatine Kinase 46 Total Protein 6.3 L Albumin 1.6 L Procalcitonin TSH 16.55 H Free T4 Pending Urine Color Urine Clarity Urine pH Ur Specific [place] Urine Protein Urine Ketones Urine Blood Urine Nitrite Urine Bilirubin Urine Urobilinogen Ur Leukocyte Esterase Urine RBC Urine WBC Ur Epithelial Cells Urine Crystals Urine Bacteria Urine Mucus Ur Culture Indicated? Urine Glucose COVID-19 PCR Nasopharyn COVID-19 PCR SARS-CoV-2 Source SARS-CoV-2 (PCR) Ref Test Perform Site 08/21/20 08/21/20 08/21/20 22:35 22:35 22:35 WBC 22.17 H RBC 3.53 L Hgb 9.5 L Hct 31.3 L MCV 88.7 MCH 26.9 L MCHC 30.4 L RDW 15.0 H Plt Count 463 H MPV 9.8 Immature Gran % 2.8 Neutrophils % 82.1 Lymphocytes % 4.3 Monocytes % 7.0 Eosinophils % 3.6 Basophils % 0.2 Nucleated RBC % 0 Absolute Neutrophils 18.20 H Absolute Lymphocytes 0.95 L Absolute Monocytes 1.55 H Absolute Eosinophils 0.80 H Absolute Basophils 0.04 RBC Morphology See below Polychromasia Present Hypochromasia 1+ PT 11.0 INR 1.1 APTT 28.5 H VBG Lactate Sodium Potassium Chloride Carbon Dioxide Anion Gap BUN Creatinine Estimated GFR/1.73 m2 Glucose Calcium Total Bilirubin AST ALT Alkaline Phosphatase Creatine Kinase Total Protein Albumin Procalcitonin 0.5 TSH Free T4 Urine Color Urine Clarity Urine pH Ur Specific [place] Urine Protein Urine Ketones Urine Blood Urine Nitrite Urine Bilirubin Urine Urobilinogen Ur Leukocyte Esterase Urine RBC Urine WBC Ur Epithelial Cells Urine Crystals Urine Bacteria Urine Mucus Ur Culture Indicated? Urine Glucose COVID-19 PCR Nasopharyn COVID-19 PCR SARS-CoV-2 Source SARS-CoV-2 (PCR) Ref Test Perform Site 08/21/20 08/21/20 08/21/20 22:35 22:35 22:32 WBC RBC Hgb Hct MCV MCH MCHC RDW Plt Count MPV Immature Gran % Neutrophils % Lymphocytes % Monocytes % Eosinophils % Basophils % Nucleated RBC % Absolute Neutrophils Absolute Lymphocytes Absolute Monocytes Absolute Eosinophils Absolute Basophils RBC Morphology Polychromasia Hypochromasia PT INR APTT VBG Lactate 2.5 H* Sodium 132 L Potassium 4.4 Chloride 94 L Carbon Dioxide 30.8 Anion Gap 7.2 BUN 13 Creatinine 0.98 Estimated GFR/1.73 m2 59.83 Glucose 151 H Calcium 7.8 L Total Bilirubin 0.3 AST 19 ALT 8 L Alkaline Phosphatase 116 Creatine Kinase Total Protein 6.5 Albumin 1.7 L Procalcitonin TSH Free T4 Urine Color Urine Clarity Urine pH Ur Specific [place] Urine Protein Urine Ketones Urine Blood Urine Nitrite Urine Bilirubin Urine Urobilinogen Ur Leukocyte Esterase Urine RBC Urine WBC Ur Epithelial Cells Urine Crystals Urine Bacteria Urine Mucus Ur Culture Indicated? Urine Glucose COVID-19 PCR Cancelled Nasopharyn COVID-19 PCR Cancelled SARS-CoV-2 Source Pending SARS-CoV-2 (PCR) Pending Ref Test Perform Site Cancelled 08/21/20 00:00 WBC RBC Hgb Hct MCV MCH MCHC RDW Plt Count MPV Immature Gran % Neutrophils % Lymphocytes % Monocytes % Eosinophils % Basophils % Nucleated RBC % Absolute Neutrophils Absolute Lymphocytes Absolute Monocytes Absolute Eosinophils Absolute Basophils RBC Morphology Polychromasia Hypochromasia PT INR APTT VBG Lactate Sodium Potassium Chloride Carbon Dioxide Anion Gap BUN Creatinine Estimated GFR/1.73 m2 Glucose Calcium Total Bilirubin AST ALT Alkaline Phosphatase Creatine Kinase Total Protein Albumin Procalcitonin TSH Free T4 Urine Color Brown Urine Clarity Sl cloudy Urine pH 6.0 Ur Specific [place] 1.025 Urine Protein >=300 H Urine Ketones Trace H Urine Blood Large H Urine Nitrite Negative Urine Bilirubin Moderate H Urine Urobilinogen 1.0 H Ur Leukocyte Esterase Negative Urine RBC >50 H Urine WBC Ur Epithelial Cells Not Applicable Urine Crystals Not Applicable Urine Bacteria Not Applicable Urine Mucus Not Applicable Ur Culture Indicated? C&s done as ordered Urine Glucose Negative COVID-19 PCR Nasopharyn COVID-19 PCR SARS-CoV-2 Source SARS-CoV-2 (PCR) Ref Test Perform Site 08/21/20 22:35 Nose MRSA Screen - Pending 08/21/20 22:28 Blood Blood Culture - Pending 08/21/20 00:00 Urine - Cath Tsang Indwelling Urine Culture - Pending 08/21/20 22:35 Blood Blood Culture - Pending Preliminary micro results at discharge 08/21/20 22:35 MRSA Screen - Pending Nose 08/21/20 22:28 Blood Culture - Pending Blood 08/21/20 00:00 Urine Culture - Pending Urine - Cath Tsang Indwelling 08/21/20 22:35 Blood Culture - Pending Blood [facility] Medical History Genital labial ulcer Morbid obesity UTI (urinary tract infection) Klebsiella -treated with Bactrim 03/2020 Surgical History History of endometrial ablation Previous section Family History Other Heart disease Hyperlipidemia Hypertension Thyroid condition Social History Smoking/Tobacco Use Status: Never Smoking risk assessment performed?: Yes Alcohol Intake: current Alcohol Intake frequency: holidays/special occasions only Drug use: Never Current gender identity: female Do you feel safe at home: Yes Do you feel safe in your relationship?: Yes History History 1 Para 2 Hx # Term Pregnancies Multiple births Hx # Pregnancies 1 Ectopic pregnancies AB induced Hx Number of Living Children 2 AB spontaneous
[2020-08-22] MEDS: LORazepam 0.5 MG TAB PO (11:24)
--- NOTE | 2020-08-22 11:29 | GCONE_ITS ---
Date of service: 08/22/20 Time of Service: 11:29 Assessment and Plan Assessment and plan (1) Primary vulvar squamous cell carcinoma: Status: Acute Assessment and plan: Multiple attempts at placement of a Tsang catheter into the bladder were unsuccessful. Anatomy was distorted and no urethra was clearly located. It was unclear even if the cavity was vaginal in origin. Patient is able to void spontaneously and even though she is concerned about breakdown of her incision at this time I recommend attempting for the placement of a Tsang prior to her transfer to [facility]. Patient and hospitalist team were notified and agreed with the plan. History of Present Illness History of Present Illness Chief Complaint: reinsert tsang bladder catheter Narrative: I was called by Dr Rutherford from the Hospitalist Service to assist with reinserting the tsang catheter in Ms Burgos. She is a 50 year old female with PMHx of metastatic vulvar cancer, s/p resection at [facility] on 08/16/2020, who suffers from morbid obesity with BMI of 77. Pt had a tsang catheter in place since her surgery at [facility]. It apparently obstructed with a large blood clot last night and was removed, I believe after the tsang bulb was deflated. She had been able to void spontaneously ~ 0700. The concern was that urinary incontinence would result in breakdown of the incisions. Review of Systems Constitutional Constitutional: Reports as per HPI and Reports fever(s) Cardiovascular Cardiovascular: Reports dyspnea Respiratory Respiratory: Reports cough and Reports dyspnea Genitourinary Comments: genital pain Musculoskeletal Comments: unable to move LE, unable to turn in bed. Neurologic Neurologic: Reports confusion Psychiatric Psychiatric: Reports anxiety and Reports confusion [facility] Medical History Genital labial ulcer Morbid obesity UTI (urinary tract infection) Klebsiella -treated with Bactrim 03/2020 Surgical History History of endometrial ablation Previous section Family History Other Heart disease Hyperlipidemia Hypertension Thyroid condition Social History Smoking/Tobacco Use Status: Never Smoking risk assessment performed?: Yes Alcohol Intake: current Alcohol Intake frequency: holidays/special occasions only Drug use: Never Current gender identity: female Do you feel safe at home: Yes Do you feel safe in your relationship?: Yes History History 1 Para 2 Hx # Term Pregnancies Multiple births Hx # Pregnancies 1 Ectopic pregnancies AB induced Hx Number of Living Children 2 AB spontaneous Exam Const General: in distress (lying in bed in supine position. Unable to move legs or rotate in bed.) moderate Nutritional Appearance: obese Orientation: oriented to person and oriented to place Resp Effort & Inspection: cough and labored GI Inspection: edema (Dependent edema of pannus) Laterality: bilateral, large pannus and obesity Rectal Exam - female: abnormal visual inspection (Unable to visualize the anus) Abdomen image: 1. Tach suture line of groin at vulvectomy site External Female Exam: erythema, externally tender and lesion Female genitals images: 1. Gaping opening in the area of vagina without recognizable anatomic landmarks. On digital exam there are multiple false tracks extending into the parametrium. No urethra was palpated. No Tsang was inserted. The epithelium within the vulvar opening is necrotic. Skin General skin exam: induration (inner thigh, cellulitis) Lesions: lesion noted (No recognizable vulvar anatomy presents) Extrem General: edema Right upper extremity: edema Psych Speech and Movement: delayed speech Mood: anxious mood Affect: sad Attitude: cooperative Thought Process: impoverished Thought Content: normal Insight: fair Judgment: fair Results Last Vital Signs Temp 97.5 F L 08/22/20 08:15 Pulse 120 H 08/22/20 08:15 Resp 22 08/22/20 08:15 BP 128/84 08/22/20 08:15 Pulse Ox 94 08/22/20 08:15 Labs Result diagrams: 08/21/20 22:35 08/22/20 08:10 Labs: Laboratory Results - last 24 hr 08/21/20 08/21/20 08/21/20 00:00 22:32 22:35 WBC RBC Hgb Hct MCV MCH MCHC RDW Plt Count MPV Immature Gran % Neutrophils % Lymphocytes % Monocytes % Eosinophils % Basophils % Nucleated RBC % Absolute Neutrophils Absolute Lymphocytes Absolute Monocytes Absolute Eosinophils Absolute Basophils RBC Morphology Polychromasia Hypochromasia PT INR APTT VBG Lactate Sodium 132 L Potassium 4.4 Chloride 94 L Carbon Dioxide 30.8 Anion Gap 7.2 BUN 13 Creatinine 0.98 Estimated GFR/1.73 m2 59.83 Glucose 151 H Calcium 7.8 L Total Bilirubin 0.3 AST 19 ALT 8 L Alkaline Phosphatase 116 Creatine Kinase Total Protein 6.5 Albumin 1.7 L Procalcitonin TSH Free T4 Urine Color Brown Urine Clarity Sl cloudy Urine pH 6.0 Ur Specific [place] 1.025 Urine Protein >=300 H Urine Ketones Trace H Urine Blood Large H Urine Nitrite Negative Urine Bilirubin Moderate H Urine Urobilinogen 1.0 H Ur Leukocyte Esterase Negative Urine RBC >50 H Urine WBC Ur Epithelial Cells Not Applicable Urine Crystals Not Applicable Urine Bacteria Not Applicable Urine Mucus Not Applicable Ur Culture Indicated? C&s done as ordered Urine Glucose Negative COVID-19 PCR Cancelled Nasopharyn COVID-19 PCR Cancelled Ref Test Perform Site Cancelled 08/21/20 08/21/20 08/21/20 22:35 22:35 22:35 WBC 22.17 H RBC 3.53 L Hgb 9.5 L Hct 31.3 L MCV 88.7 MCH 26.9 L MCHC 30.4 L RDW 15.0 H Plt Count 463 H MPV 9.8 Immature Gran % 2.8 Neutrophils % 82.1 Lymphocytes % 4.3 Monocytes % 7.0 Eosinophils % 3.6 Basophils % 0.2 Nucleated RBC % 0 Absolute Neutrophils 18.20 H Absolute Lymphocytes 0.95 L Absolute Monocytes 1.55 H Absolute Eosinophils 0.80 H Absolute Basophils 0.04 RBC Morphology See below Polychromasia Present Hypochromasia 1+ PT 11.0 INR 1.1 APTT 28.5 H VBG Lactate 2.5 H* Sodium Potassium Chloride Carbon Dioxide Anion Gap BUN Creatinine Estimated GFR/1.73 m2 Glucose Calcium Total Bilirubin AST ALT Alkaline Phosphatase Creatine Kinase Total Protein Albumin Procalcitonin TSH Free T4 Urine Color Urine Clarity Urine pH Ur Specific [place] Urine Protein Urine Ketones Urine Blood Urine Nitrite Urine Bilirubin Urine Urobilinogen Ur Leukocyte Esterase Urine RBC Urine WBC Ur Epithelial Cells Urine Crystals Urine Bacteria Urine Mucus Ur Culture Indicated? Urine Glucose COVID-19 PCR Nasopharyn COVID-19 PCR Ref Test Perform Site 08/21/20 08/22/20 08/22/20 22:35 00:15 08:10 WBC RBC Hgb Hct MCV MCH MCHC RDW Plt Count MPV Immature Gran % Neutrophils % Lymphocytes % Monocytes % Eosinophils % Basophils % Nucleated RBC % Absolute Neutrophils Absolute Lymphocytes Absolute Monocytes Absolute Eosinophils Absolute Basophils RBC Morphology Polychromasia Hypochromasia PT INR APTT VBG Lactate Sodium Potassium Chloride Carbon Dioxide Anion Gap BUN Creatinine Estimated GFR/1.73 m2 Glucose Calcium Total Bilirubin AST ALT Alkaline Phosphatase Creatine Kinase 46 Total Protein Albumin Procalcitonin 0.5 TSH 16.55 H Free T4 0.99 Urine Color Urine Clarity Urine pH Ur Specific [place] Urine Protein Urine Ketones Urine Blood Urine Nitrite Urine Bilirubin Urine Urobilinogen Ur Leukocyte Esterase Urine RBC Urine WBC Ur Epithelial Cells Urine Crystals Urine Bacteria Urine Mucus Ur Culture Indicated? Urine Glucose [facility] Ref Test Perform Site 08/22/20 08:10 WBC RBC Hgb Hct MCV MCH MCHC RDW Plt Count MPV Immature Gran % Neutrophils % Lymphocytes % Monocytes % Eosinophils % Basophils % Nucleated RBC % Absolute Neutrophils Absolute Lymphocytes Absolute Monocytes Absolute Eosinophils Absolute Basophils RBC Morphology Polychromasia Hypochromasia PT INR APTT VBG Lactate Sodium 136 Potassium 4.9 Chloride 99 Carbon Dioxide 30.5 Anion Gap 6.5 BUN 13 Creatinine 1.06 H Estimated GFR/1.73 m2 54.65 Glucose 144 H Calcium 7.4 L Total Bilirubin 0.3 AST 17 ALT 8 L Alkaline Phosphatase 114 Creatine Kinase Total Protein 6.3 L Albumin 1.6 L Procalcitonin TSH Free T4 Urine Color Urine Clarity Urine pH Ur Specific [place] Urine Protein Urine Ketones Urine Blood Urine Nitrite Urine Bilirubin Urine Urobilinogen Ur Leukocyte Esterase Urine RBC Urine WBC Ur Epithelial Cells Urine Crystals Urine Bacteria Urine Mucus Ur Culture Indicated? Urine Glucose COVID-19 PCR [facility] COVID-19 PCR Ref Test Perform Site
[2020-08-24 09:32] LABS: SARS-CoV-2 RNA Not Detected (NotDetected); SARS-CoV-2 RNA Source Nasopharynx
== END 2020-08-22 11:21 | disposition short-term general hospital (02) | DRG 872 ==
LOC: ER 08-22 02:01 → MS 08-22 02:06
PROVIDERS: Admitting Provider Family Medicine; Emergency Provider Student in an Organized Health Care Education/Training Program; PCP Nurse Practitioner Family; Visit Provider Family Medicine
DX: A41.9 Sepsis, unspecified organism (principal); Z68.45 Body mass index [BMI] 70 or greater, adult; C79.51 Secondary malignant neoplasm of bone; C78.02 Secondary malignant neoplasm of left lung; C78.01 Secondary malignant neoplasm of right lung; C77.2 Secondary and unspecified malignant neoplasm of intra-abdominal lymph nodes; N39.0 Urinary tract infection, site not specified; G89.3 Neoplasm related pain (acute) (chronic); C51.9 Malignant neoplasm of vulva, unspecified; E66.01 Morbid (severe) obesity due to excess calories; G89.4 Chronic pain syndrome; E86.0 Dehydration; E83.51 Hypocalcemia; R31.0 Gross hematuria
CPT/HCPCS: 36415; 80053; 82550; 84145; 87040; 87081; 87449; 96361; 96365; 96367; 96368; 96375; 99222; 99239; 99252; 99285; E0191; U0003; 71045; 74177; 81003; 81015; 83605; 84439; 84443; 85025; 85610; 85730; 87086; 99236; J0131; J0610; J2060; J2270; J2543; J3490